=== PATIENT | female | born 1995 | race Caucasian/White ===

== ENCOUNTER 2024-10-19 09:02 | Emergency (ER) | payer BC, SELFPAY ==
[2024-10-19 09:08] VITALS: BP 97/62; PULSE 52; RESP 16; TEMP 36.6; O2SAT 99; BMI 23.1
[2024-10-19 09:22] VITALS: BP 101/65; PULSE 43; O2SAT 100
--- NOTE | 2024-10-19 09:34 | ED_ITS ---
HPI - Syncope General Time Seen by Provider: 09:35 Date Seen: 10/19/24 Chief Complaint: Syncope/Fainted Stated Complaint: fainted Time Seen by Provider: 10/19/24 09:34 Source: patient and RN notes reviewed Mode of arrival: ambulatory Limitations: no limitations History of Present Illness HPI narrative: This 29-year-old female is brought in by EMS after syncopal episode. Her was present. They are doing IU I with self [facility]. She administered injectable Ovidrel in her abdomen and immediately fainted. Her was there, lowered her to the floor. He states there was no injury, did not hit her head, did not fall. She had maybe 20 seconds where she was out, when she came to she remembers being confused and disoriented. The only other time she had this injection they did it. She did faint in 7th grade after knee surgery, got up too quickly the next morning after surgery and fainted. Her heart rate is bradycardic on arrival, states she has always been low, heart rate will go into the 40s at night on her orua ring. She does exercise but is not at a significant runner. She wants no for heart rate being this low the problem. Discussed with her it can be a sign of healthy heart but if she becomes symptomatic in the future or is having more issues, it potentially is a problem. I would say that is not necessarily in easy question to answer and will depend on response and symptoms into the future. Her did note some slight jerking but there was no noted tonic clonic activity per report. EMS did put an IV in and started normal saline, 250 mL. She has not ate or drink this morning yet. Related Data Home Medications ?Medication ?Instructions ?Recorded ?Confirmed choriogonadotropin aida,humrec 250 mcg subcut 10/19/24 mcg/0.5 mL subcutaneous syringe (Ovidrel) levothyroxine 25 mcg tablet 25 mcg PO DAILY 10/19/24 0 10/19/24 (Levo-T) sertraline 25 mg tablet 25 mg PO DAILY 10/19/2409/29 Allergies Allergy/AdvReac Type Severity Reaction Status Date / Time No Known Drug Allergies Allergy Verified 10/19/24 09:08 Review of Systems Status of ROS: Reports: 6 or more systems reviewed and unremarkable except as noted in History and below Exam Const: Vital Signs, click to edit/add: Vital Signs - 24 hr 10/19/24 09:08 10/19/24 09:22 10/19/24 09:41 Temperature 97.8 F Pulse Rate 43 L Pulse Rate [Pulse Oximeter] 52 L Respiratory Rate 16 Blood Pressure 101/65 Blood Pressure [Ri ght Upper Arm] 97/62 Pulse Oximetry 99 100 100 Oxygen Delivery Me thod Room Air 10/19/24 09:42 Temperature Pulse Rate 41 L Pulse Rate [Pulse Oximeter] Respiratory Rate Blood Pressure 102/62 Blood Pressure [Ri ght Upper Arm] Pulse Oximetry 100 Oxygen Delivery Me thod This 29-year-old female is alert, interactive, no apparent distress. Sclera clear, conjugate gaze, symmetrical facial function, speaking in complete sentences. Neck is supple, no adenopathy or thyromegaly masses or nodules. Lungs are clear come good air entry, wheeze or crackles, no accessory muscle use. CV is slow but regular, no murmur, normal S1-S2, no S3-S4. Abdomen is soft, nontender, nondistended, no organomegaly, no rebound or guarding. She has a bandage over the site of injection, no surrounding erythema or bruising. Moving extremities and legs, no gross neuro deficits noted. Documenting provider has reviewed patient's vital signs: yes Course Course ED Course: Patient will be monitored, will get baseline labs but this really is consistent with vasovagal syncope. She gave herself an injection and fainted immediately. We call that vasovagal syncope and have reviewed this. She will be on monitoring while here to ensure no arrhythmia. Her bradycardia is baseline and doubt that this is causing active symptoms but could have tied in with the vasovagal syncope. This is not likely to be cerebrovascular ischemic disease at all, will not be doing a head CT is the radiation outweighs any benefit. Doubtful that this is thromboembolic disease with pulmonary emboli but will do a screening D-dimer and observe her for hypoxia here. Unlikely to be ischemic car diac disease as well but again will be getting troponin and monitoring here. Reevaluation(s) Time of Reevaluation #1: 10:56 Reevaluation #1: Have reviewed with patient that her labs are all reassuring. D-dimer was negative and with her history, really highly doubt pulmonary embolus as a cause. Lactate was normal which really does reassure us that there was no seizure activity. She is feeling fine. Will discharge to home. No hypoxia or arrhythmia seen while here. Vital Signs Vital signs: Initial Vital Signs Temperature 97.8 F 10/19/24 09:08 Temperature Source Temporal Artery Scan 10/19/24 09:08 Pulse Rate 52 L 10/19/24 09:08 Respiratory Rate 16 10/19/24 09:08 Blood Pressure 97/62 10/19/24 09:08 Blood Pressure Mean 73 10/19/24 09:08 Blood Pressure Position Supine 10/19/24 09:08 Pulse Oximetry 99 10/19/24 09:08 Oxygen Delivery Method Room Air 10/19/24 09:08 Vital Signs Temperature 97.8 F 10/19/24 09:08 Pulse Rate 52 L 10/19/24 09:08 Respiratory Rate 16 10/19/24 09:08 Blood Pressure 97/62 10/19/24 09:08 Pulse Oximetry 99 10/19/24 09:08 Oxygen Delivery Method Room Air 10/19/24 09:08 Temperature 97.8 F 10/19/24 09:08 Pulse Rate 41 L 10/19/24 09:42 Respiratory Rate 16 10/19/24 09:08 Blood Pressure 102/62 10/19/24 09:42 Pulse Oximetry 100 10/19/24 09:42 Oxygen Delivery Method Room Air 10/19/24 09:08 MDM - Syncope Lab Data Attestation: I reviewed the patient's lab results. Labs: Lab Results 10/19/24 Range/Units 09:51 WBC 5.66 (4.50-11.00) K/uL RBC 4.45 (4.00-5.20) m/uL Hgb 13.5 (12.0-16.0) gm/dL Hct 40.6 (33.0-51.0) % MCV 91 (80-100) fL MCH 30 (26-34) pg MCHC 33 (32-36) gm/dL RDW Coeff of Yasmeen 12.3 (11.5-15.5) % Plt Count 214 (140-440) K/uL Neut % (Auto) 72.0 (42.0-72.0) % Lymph % (Auto) 18.0 L (20-44) % Taney % (Auto) 8.0 (0.0-11.0) % Eos % (Auto) 1.1 (0.0-7.0) % Baso % (Auto) 0.7 (0.0-3.0) % Neut # (Auto) 4.08 (1.7-7.0) K/uL Lymph # (Auto) 1.00 (0.90-2.90) K/uL Taney # (Auto) 0.50 (0.00-0.90) K/UL Eos # (Auto) 0.06 (0.00-0.50) K/uL Baso # (Auto) 0.04 (0.00-0.30) K/uL Abs Immat Gran (auto) 0.01 (0.00-0.30) K/uL Imm/Tot Granulo (auto) 0.2 % D-Dimer Quant (PE/DVT) < 0.27 (0.00-0.50) ug/ml Sodium 137 (135-149) mmol/L Potassium 4.5 (3.6-5.1) mmol/L Chloride 107 (96-114) mmol/L Carbon Dioxide 27 (20-32) mmol/L Anion Gap 3 L (7-15) mEq/L BUN 14 (5-24) mg/dL Creatinine 0.9 (0.5-1.5) mg/dL Estimated Creat Clear 107.81 Estimated GFR 88 ml/min Glucose 90 (60-115) mg/dL Lactate 0.7 (0.5-1.9) mmol/L Calcium 9.0 (8.4-10.6) mg/dL Troponin I < 0.01 (0.01-0.04) ng/mL ECG Data Attestation: I personally reviewed and interpreted this ECG as follows: (Sinus bradycardia, 43 beats per minute. No active infarct or ischemia.) ECG interpretation date: 10/19/24 ECG interpretation time: 09:21 Discharge Plan Discharge Clinical Impression: Vasovagal syncope Patient Disposition: Home, Self-Care Condition: Stable Instructions: Syncope (ED) Additional Instructions: I would absolutely recommend laying down with any further injections, would do injections with your present. I also would recommend eating and drinking adequately before injections or medical procedures. At this time I do not feel that your heart rate is the cause of your problems. If you note in the future that you are having more vasovagal episodes or becoming dizzy or lightheaded with position changes, have exercise intolerance, further evaluation of your heart rate can be entertained with Cardiology. Activity Level: No Restrictions and Activity as Tolerated Discharge Diet: Regular Prescriptions: No Action levothyroxine [Levo-T] 25 mcg tablet 25 mcg PO DAILY sertraline 25 mg tablet 25 mg PO DAILY Ovidrel 250 mcg/0.5 mL syringe subcut Follow Up/Referrals: Provider,Not a Local [Primary Care Provider, Family Practice] Stand Alone Forms: [employer] Info Instructions
[2024-10-19 09:41] VITALS: O2SAT 100
[2024-10-19 09:42] VITALS: BP 102/62; PULSE 41; O2SAT 100
[2024-10-19 10:02] VITALS: BP 99/61; PULSE 47; RESP 15; O2SAT 100
[2024-10-19 10:04] LABS: Lactate* 0.7 mmol/L (0.5-1.9)
[2024-10-19 10:06] LABS: Hematocrit 40.6 % (33.0-51.0); Hemoglobin* 13.5 gm/dL (12.0-16.0); Immature Granulocytes Abs Auto 0.01 K/uL (0.00-0.30); Immature Granulocytes Pct Auto 0.2 %; Mean Corpuscular HGB Conc 33 gm/dL (32-36); Mean Corpuscular Hemoglobin 30 pg (26-34); Mean Corpuscular Volume 91 fL (80-100); RDW Coefficient of Variation % 12.3 % (11.5-15.5); Red Blood Count 4.45 m/uL (4.00-5.20); White Blood Count* 5.66 K/uL (4.50-11.00)
--- OUTSIDE RECORDS SUMMARY | 2024-10-19 10:07 | XMS_ITS | Data Portability ---
Author Organization [facility], [id number] Address [address] [address] [place] [address] Assessment Encounter Date Assessment Date Assessment LastModified by Organization Details LastModified Time 10/11/2024 10/11/2024 I spent a total of 10 minutes providing care for this patient including: preparing to see the patient, obtaining a medical history, completing a medically appropriate physical exam, completing documentation of visit information and plans in the EMR, counseling the patient and/or caregiver regarding her diagnosis, treatment options and follow up plans, as well as any necessary communication of subsequent test results to the patient Excludes time spent on separately identifiable services. This service was provided using telemedicine including synchronous audio and/or video approved technology. The patient verbally Consents to telemedicine services, virtual check-ins and evisits. Telemedicine consultation via Synchronous Audio and Video Call. The patient is located in their home-10 when receiving health services through telecommunication technology. Not available 10/11/2024 10:50:40 10/18/2024 10/18/2024 I spent a total of 10 minutes providing care for this patient including: preparing to see the patient, obtaining a medical history, completing a medically appropriate physical exam, completing documentation of visit information and plans in the EMR, counseling the patient and/or caregiver regarding her diagnosis, treatment options and follow up plans, as well as any necessary communication of subsequent test results to the patient Excludes time spent on separately identifiable services. This service was provided using telemedicine including synchronous audio and/or video approved technology. The patient verbally Consents to telemedicine services, virtual check-ins and evisits. Telemedicine consultation via Synchronous Audio and Video Call. The patient is located in their home-10 when receiving health services through telecommunication technology. [email or web address] Not available 10/17/2024 08:27:52 Plan of Treatment Reminders Order Date Submit Date Provider Last Modified By Organization Details Last Modified Time Details Appointments G_ARTIFIC IAL INSEMINAT ION 2024 10:30A M Dr. Reina Almodovar Not available Not available Not available Lab None recorded. Referral None recorded. Procedures None recorded. Surgeries None recorded. Imaging US, transvagi nal 2024 025 anuj [id number] le_gonzález, [address], [address], [place], [address], 10/11/2024 13:23:47 Medication Orders Ovidrel 250 mcg/0.5 mL subcutane ous syringe 2024 025 [id number], [address] [facility] [address], [place], [place], [id number], 10/11/2024 09:47:16 letrozole 2.5 mg tablet 2024 025 [employer] [facility] [address] [facility] [employer], [address] [facility], [place], [address], 10/11/2024 09:47:12 Patient TargetsNo targets recorded. Patient Instructions Encounter Date Encounter Id Patient Instructions Last Modified By Organization Details Last Modified Time 09/24/2024 [id number] -can also cover w/IC tomorrow -UPT in 2 wks if no menses -call with CD 1 if wants to start another medicated/monitor ed cycle Not available 09/24/2024 13:24:48 10/11/2024 [id number] -reviewed baseline sono w/Huepfel and pt -plan letrozole 2.5 mg CD 5-9 -follow up u/s CD 12 or 13 -IUI timing based on repeat sono [email or web address] Not available 10/11/2024 12:11:19 10/18/2024 [id number] -reviewed ultrasound findings, 22.4 mm follicle, 7 mm endometrium -plan IUI Friday or , Ovidrel trigger 10/18 or 10/19 -has appt with [facility] in October [email or web address] Not available 10/18/2024 11:35:56 Reason for Referral None Reported. Results Created Date Observation Date Name Description Value Unit Range Abnormal Flag Note LastModifiedBy Organization Detail LastModifiedTime 09/07/19 25 09/06/2024 PROGE STERO NE progesterone 20.8 NG/mL Healt hy Postm enopa usal Women : Postm enopa use: <=0.1 ng/mL Healt hy Pregn ant Women : 1st Trime ster: 11.0- 44.3 ng/mL 2nd Trime ster: 25.4- 83.4 ng/mL 3rd Trime ster: 58.7- 214.0 ng/mL Healt hy Women Cycle Phase : Folli cular : <0.1- 0.2 ng/mL Ovula tion: 0.1-4 .1 ng/mL Lutea l: 4.1-1 4.5 ng/mL Healt hy Women Cycle Sub Phase : Early Folli cular : <0.1- 0.3 ng/mL Inter media te Folli cular : <0.1- 0.2 ng/mL Late Folli cular : <0.1- 0.2 ng/mL Ovula tion: <0.1- 2.4 ng/mL Early Lutea l: 2.4-1 5.1 ng/mL Inter media te Lutea l: 4.8-2 0.9 ng/mL Late Lutea l: 0.5-1 3.5 ng/mL Not Available [address], [place], [address], 09/06/2024 21:06:28 09/17/19 25 09/16/2024 US, trans vagin al No observ ation record ed. [email or web address] [address], [place], [address], 09/21/2024 08:44:22 09/24/19 25 09/23/2024 US, trans vagin al No observ ation record ed. [email or web address] [address], [place], [address], 10/05/2024 08:55:23 10/12/1910/11/2024 US, trans vagin al No observ ation record ed. [email or web address] Velasquez [address], [place], [address], 10/17/2024 13:16:56 10/19/19 25 10/18/2024 US, trans vagin al No observ ation record ed. korey Velasquez [address], [place], [address], 10/18/2024 10:19:30 Result Notes None recorded. Problems Name Problem SNOMED Code Status Onset Date Resolution Date Notes Provider Name and Address Organization Details Recorded Time 97635181 Completed 202312/03/2023 Andra garcia null, [place] - [facility] 4 11:29:27 Blood group O Rh(D) negative 962749824 Completed 2023 Evleyn Meza null, [place] - [facility] 4 11:28:56 Blood group O Rh(D) negative 820263353 Active 2023 Evelyn Meza null, [place] - [facility] 4 11:28:56 Problem Notes None recorded. Procedures Surgical History Date Name Laterality Status Provider Name and Address Organization Details Recorded Time 09/25/19 25 Intrauterine Insemination ([facility]) completed BETSY HARDEN [address] [facility],[address], [place], [address], [facility] - [facility] 09/24/2024 13:23:18 09/01/19 25 Intrauterine Insemination ([facility]) [place] [address] [address], [place], [address], [facility] - [facility] 08/31/2024 13:59:14 02/17/20 24 Date of Last Pap Smear completed Gabe Tilley [place] - [facility] 02/23/2024 14:37:49 12/11/19 24 HYSTEROSCOPIC TISSUE REMOVAL ([facility]) completed [facility] [place] [facility] 12/16/2023 13:57:19 09/26/19 23 Hysteroscopy [place] [address] [facility],[address], [place], [address], [facility] 11/23/2023 17:45:37 operative procedure on knee completed Jennifer Felton [place] - [facility] 09/16/2024 08:17:57 Imaging Results None recorded. Procedure Notes None recorded. Medical Equipment None Reported. Allergies No known drug allergies Medications Name Sig Start Date Stop Date Status Note LastModified by Organization Details LastModified Time prednisone 10 mg tablet TAKE 2 TABLETS BY MOUTH THREE TIMES DAILY FOR 3 DAYS, 2 TABLETS TWICE DAILY FOR 3 DAYS, 1 TABLET TWICE DAILY FOR 3 DAYS, 1 TABLET DAILY FOR 3 DAYS FOR pain flare 10/29 completed Not Available Not Available Not Available levothyroxi ne 25 mcg tablet TAKE 1 TABLET BY MOUTH EVERY DAY active Not Available Not Available No t Available ketorolac 10 mg tablet Take 1 tablet orally 4 times a day as needed for pain, not to exceed 40 mg/day and 5 days duration for all dose forms 10/29 completed Not Available Not Available Not Available cyclopentol ate 1 % eye drops PLACE 1 DROP IN THE RIGHT EYE 3 TIMES A DAY 05/07 completed Not Available Not Available Not Available prednisolon e acetate 1 % eye drops,suspe nsion INSTILL 1 DROP IN THE RIGHT EYE 4 TIMES DAILY 05/07 completed Not Available Not Available Not Available methocarbam ol 750 mg tablet 11/20 completed Not Available Not Available Not Available mifepriston e 200 mg tablet Take 1 tablet by oral route for 1 day. 11/13 completed Not Available Not Available Not Available misoprostol [address] 4 TABLETS VAGINALLY DIRECTED 11/13 completed Not Available Not Available Not Available gabapentin 300 mg capsule 11/20 completed Not Available Not Available Not Available sertraline 25 mg tablet TAKE 1 TABLET BY MOUTH EVERY DAY active Not Available Not Available No t Available diclofenac sodium 75 mg tablet,penny yed release 11/20 completed Not Available Not Available Not Available letrozole 2.5 mg tablet Take 1 tablet every day by oral route for 5 days. 2024 active Not Available Not Available Not Avai lable methylpredn isolone 4 mg tablets in a dose pack Take according to package direction s for 6 days 10/29 completed Not Available Not Available Not Available atropine 1 % eye drops Instill ONE drop into right IN THE AFFECTED EYE EVERY DAY FOR SEVEN DAYS 10/29 completed Not Available Not Available Not Available ondansetron 4 mg disintegrat ing tablet PLACE 1 TABLET EVERY 4-6 HOURS BY TRANSLING UAL ROUTE NEEDED FOR 1 DAY. 11/13 completed Not Available Not Available Not Available doxycycline hyclate 100 mg tablet TAKE 1 TABLET BY MOUTH TWICE DAILY STARTING NIGHT OF PROCEDURE 02/16 completed Not Available Not Available Not Available Ovidrel 250 mcg/0.5 mL subcutaneou s syringe ADMINISTE R 0.5 ML UNDER THE SKIN EVERY DAY FOR 1 DAY. active Not Available Not Available No t Available Dasetta (28) 1 mg-35 mcg tablet Take 1 tablet by mouth daily. Skip placebo tablets. 10/29 completed Not Available Not Available Not Available Vitals Date Recorded Body height Body mass index (BMI) Body weight Systolic And Diastolic Provider Name and Address Organization Details Last Updated DateTime 09/24/2024 185.42 cm 23.2 kg/m2 36306.82 g 100/62 mm[Hg] Jayla Riser [facility] 09/24/2024 12:23:07 Social History Question Answer Notes LastModified by Organizat ion Details LastModified Time Tobacco Smoking Status Never Smoker [facility] 09/16/2024 08:16:44 What Is Your Level Of Caffeine Consumption? None Information not available 09/16/2024 Spouses/Partners Name: Ti benavides Information not available 09/16/2024 Have You Ever Been Or Currently Are A Victim Of Sexual Abuse? No Information not available 09/16/2024 Have You Ever Been Or Currently Are A Victim Of Physical Abuse? No Information not available 09/16/2024 Have You Ever Been Or Currently Are A Victim Of Emotional Abuse? No Information not available 09/16/2024 What Is Your Relationship Status? Information not available 09/16/2024 Sex: Female Functional Status Question Answer Note LastModified by Organization D etails LastModified Time What is your level of alcohol consumption? None Information not available 09/16/2024 What is your exercise level? Moderate Information not available 09/16/2024 Mental Status None recorded. Family History Nothing Reported. Medical History Condition Response Neurology- Headaches/Migraines Y Gynecological History Statement/Question Response History of Abnormal PAP N Date of Last HPV Test 02/17/2024 Date of Last Pap Smear 02/17/2024 Date of LMP 09/12/2024 Obstetrics History GPAL:G 1 P 0 0 1 0 Type Value Spontaneous 1 Total 1 Past Encounters Encounter ID Performer Location Encounter Start Date Encounter Closed Date Diagnosis/Indication Diagnosis SNOMED-CT Code Diagnosis ICD10 Code Diagnosis Note [id number] ALISIA DELGADO MD [id number] [facility] [address] [address] 10/31/2023 15:19:21 11/05/2023 10:05:52 Vaginal bleeding complicating early 938203634 O20.9 [id number] [facility] [id number] [facility] ,[address] [place] [address] 10/31/2023 16:29:21 10/31/2023 17:50:22 Missed miscarriage 54324186 O02.1 RhD negative 270119671 Z -Rhogam not administer ed due to early gestation per protocol 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, had a large uterine septum-had take down summer 2022 at [place], records requested [id number] ALISIA DELGADO MD [id number] [facility] [address] [place] [address] 11/14/2023 10:15:15 11/24/2023 15:34:36 Missed miscarriage 82778402 O02.1 [id number] TI GOMEZ MD [id number] [facility] [address] [place] [address] 11/14/2023 11:02:31 11/17/2023 09:05:43 Incomplete miscarriage 414370034 O03.4 [id number] TI GOMEZ MD [id number] [facility] [address] [place] [address] 11/21/2023 16:35:25 11/24/2023 10:25:28 Complete miscarriage 378430764 O03.9 [id number] KARLO RODRIGUEZ, [id number] [place] [address] [place] [address] 11/28/2023 16:15:39 12/16/2023 17:01:18 Missed miscarriage 45114944 O02.1 [id number] TI GOMEZ MD [id number] [place] [address], [address] [place] [address] 11/28/2023 16:40:16 12/03/2023 11:25:35 Incomplete miscarriage 328196135 O03.4 Pre-surger y evaluation 820040293 Z01.009 [id number] ALISIA DELGADO MD [id number] [place] ,[address] [place] [address] 12/10/2023 08:14:02 12/10/2023 09:08:54 Retained products after miscarriage 832049829 O03.4 [id number] [facility] [id number] [place] ,[address] [place] [address] 02/17/2024 09:16:48 02/17/2024 10:17:19 Gynecologic examination 23333215 Z01.419 Mental [facility] screening 902054332 Z13.39 The PHQ & ELDA were reviewed with the patient. They have no clinically significan t mood concerns. Screening for malignant neoplasm of cervix 318508710 Z12.4 [id number] CR LANG, [facility] [id number] [place] ,[address] [place] [address] 05/07/2024 16:08:49 05/10/2024 09:56:06 Uveitis 611953038 H20.146 [id number] CR LANG [facility] [id number] [place] ,[address] [place] [address] 08/13/2024 15:47:12 08/16/2024 10:27:24 Trying to conceive 830580955 Z78.9 -reviewed pertinent medical & CFO CONTROLLER history as well as spouse's medical history-me nstrual history as well as her monitoring would appear she is ovulating regularly- continue current supplement s with the exception of melatonin, this can interact with thyroid meds-she has already had an HSG, report indicates possible left tubal blockage, her recall of the testing was that it was fine-req uest copy of spouse's SA-at this point, they are most interested in pursuing IUI in addition to completing lab evaluation s that have not yet been done-discu ssed options for IUI includine monitored/ unmonitore d and medicated/ unmedicate d: 1. natural cycle, call with +OPK to schedule IUI the next day, 2. u/s monitoring to confirm follicle maturation followed by IUI based on OPK or 3. use Ovidrel to trigger ovulation andplan IUI timing-ricco efly discussed limitation s of this clinic including no on-site andrology lab and no weekend/ev ening hours, this can at times complicate IUI-briefl y discussed option to add ovarian stimulatio n with either clomiphene or letrozole, no option for unmonitore d cycle if choosing to add these medication s, two ultrasound s minimum (baseline + mid cycle) done per cycle-will d/w all with spouse, will have infertilit y benefits checked and decide how to proceed Subclinica l hypothyroidism 25853462 E03.8 Screening for disorder 252047769 Z13.29 Z13.0 Z13.21 Z13.228 Diabetes m ellitus screening 692409642 Z13.1 [id number] CR RICKEY, DAVEY- [id number] [place] [address] [facility] ,[address] [place] [place] [address] 08/20/2024 16:56:38 08/25/2024 11:24:19 Vaginal pain 19174255 R10.2 [id number] SVEN EDMONDSON MD [id number] [place] ,[address] [place] [address] 08/31/2024 11:40:34 08/31/2024 14:04:02 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 516474592 Z31.81 N97.8 +LH surge on CD#15.Toda y is CD#16 and IUI performedP elijah to return next Friday for progestero ne level [id number] ALISIA DELGADO MD [id number] [place] ,[address] [place] [address] 09/16/2024 08:24:23 09/16/2024 11:59:19 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 573320320 Z31.81 N97.8 [id number] MD DANIKA QUARLES004_SOU [place] ,[address] [place] [address] 09/16/2024 10:51:54 09/16/2024 11:58:46 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 654643012 Z31.81 N97.8 Normal baseline USPlan letrozole 2.5mg CD#5-9Retu rn CD#12 for US (09/23), with possible IUI either 09/24 or Mon tart OPK's CD#10 [id number] GRACIE ALVARADO, DAVEY [id number]_LBC [place] ,[address] [place] [address] 09/23/2024 08:20:28 09/23/2024 11:18:47 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 222534137 Z31.81 N97.8 [id number] BETSY HARDEN [id number] [place] [address] [place] [address],[address] [place] [address] 10/11/2024 08:53:54 10/11/2024 12:46:44 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 533715760 Z31.81 N97.8 Female infertility 15546 08 N97.9 Cyst of right ovary 1223 317100 2493899 N83.201 -3.5 cm, unchanged from last cycle-elisha tor for any right sided pain [id number] KARLO RODRIGUEZ, DO [id number] [place] ,[address] [address] 10/11/2024 08:26:05 10/11/2024 08:53:23 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 900108570 Z31.81 N97.8 [id number] BETSY HARDEN [id number] [place] [address] [place] [address] 10/18/2024 11:08:39 10/18/2024 15:42:32 Female infertility 5016022 N97.9 Cyst of right ovary 1223 555811 7623760 N83.201 -stable, asymptomat ic, monitor for any right sided pain [id number] KARLO RODRIGUEZ, [id number]_XQY [address] [address] 10/18/2024 08:28:09 10/18/2024 08:56:29 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 104240005 Z31.81 N97.8 Health Concerns Section Related Observation LastModified by Organization Detai ls LastModified Time None Recorded Concern Status LastModified by Organization Details LastModified Time None Recorded Advance Directives Directive None Recorded Payers Insurance Date Sequence Insurance Name Policy Number Policy Reis Covered Member ID Reis Member ID Guarantor Name 10/17/2024 1 [place] [id number] Naga Murrieta [id number] Naga Murrieta 08/16/2024 1 [place] [id number] Ngaa [id number] Naga Murrieta Notes Date Note Type Note Provider Name and Address Organization Details Recorded Time 09/24/2024 text/html Naga is here today for an IUI. BETSY HARDEN [address] [facility],[address], [place], [address], [facility] 09/24/2024 13:25:20 10/11/2024 text/html Cycle #: 3Cycle Day: 5Cycle Medications: letrozole 2.5mgMedication taken on: Plan CD# 5-9Ultrasound findings:Endometri um: trilaminar 5.8 and 6.3mmLeft Ovarian Follicles: n/aRight Ovarian Follicles: n/a, simple cystFluid in Cul-de-sac: noTrigger Shot: yesInsemination: yes - planned Semen Analysis: Abnormal motility and morphology Tubal Patency Study: Not done Lab Results: Not done. Day 21 progesterone = 20.8TSH 2.08 (on Synthroid 25mcg) Results of Previous Cycle:Cycle 1: unmedicated, did IUI after spontaneous ovulation. Had +LH surge on CD#15 last cycle Cycle 2: letrozole 2.5mg, good response cycle day 12, planning trigger shot CD 12 and IUI the next day. Cycle 3: baseline sono with simple cyst, d/w Huepfel, present last cycle, no growth with 2.5 mg letrozole, plan same dose, trigger shot + IUI CR LANG, [facility]- [id number] [facility],[address], [place], [address], [facility] 10/11/2024 12:15:06 10/18/2024 text/html Cycle #: 3Cycle Day:Cycle Medications: letrozole 2.5mgMedication taken on: Plan CD# 5-9Ultrasound findings:Endometri um: trilaminar 7 mmLeft Ovarian Follicles: 22.4Right Ovarian Follicles: n/a, simple cystFluid in Cul-de-sac: noTrigger Shot: yesInsemination: yes - plannedSemen Analysis: Abnormal motility and morphology Tubal Patency Study: Not done Lab Results: Not done. Day 21 progesterone = 20.8TSH 2.08 (on Synthroid 25mcg) Results of Previous Cycle:Cycle 1: unmedicated, did IUI after spontaneous ovulation. Had +LH surge on CD#15 last cycle Cycle 2: letrozole 2.5mg, good response cycle day 12, planning trigger shot CD 12 and IUI the next day. Cycle 3: baseline sono with simple cyst, d/w Huepfel, present last cycle, no growth with 2.5 mg letrozole, plan same dose, trigger shot + IUI Not Available Not Available Not Available OBGyn Episode Ob Episode Information Episode Created Date Number of Fetuses Patient Bloodtype Patient rh Status Prepregnancy Weight lbs Domestic Partner Domestic Partner Phone Father Name Learning And Development Consultant Status 10/31/19 24 1 O Negative CLOSED Fetus Data First Name Last Name Admitted to NICU Weight (g) Sex Living Outcome Pediatric Complications Fetus ID Race Codes Race Delivery Type [id number] Problems Problem Notes Problem Name Start Date End Date Resolution Snomed Code Not e Blood group O Rh(D) negative 10/31/2023 [id number] Todd Calculation Initial Todd Date Initial Exam Date Initial Exam Provider Initial Ultrasound Date Last Menstrual Period Date Ultra Sound Weeks Gestation 10/31/2023 0 Eighteen To Twenty Week Todd Update Ultra Sound Date Fundal Height At Umbil Quickening Date Ultra Sound Latest Weeks Gestation Final Todd Confirmed By Final Todd Confirmed Date Final Todd Date Ultra Sound Latest Days Gestation 0 0 Pre-rosales Flowsheet Flowsheet Date 10/31/2023 Goldsmith Score Blood Edema Fundus Height Fundus Units Glucose Ketones Leukocytes Nitrite Labor Signs Protein Cervic Dilation Cervic Effacement Cervic Station Type Weight in lbs Pre/Post Dialysis Refused BP Diastolic BP Location Tested BP Systolic BP Type Fetus Heart Rate Present Fetus Movement Comments Flowsheet Date 10/31/2023 Goldsmith Score Blood Edema Fundus Height Fundus Units Glucose Ketones Leukocytes Nitrite Labor Signs Protein Cervic Dilation Cervic Effacement Cervic Station none neg Type Weight in lbs Pre/Post Dialysis Refused 174.547709414322 BP Diastolic BP Location Tested BP Systolic BP Type 70 95 Fetus Heart Rate Present Fetus Movement Comments Flowsheet Date 11/14/2023 Goldsmith Score Blood Edema Fundus Height Fundus Units Glucose Ketones Leukocytes Nitrite Labor Signs Protein Cervic Dilation Cervic Effacement Cervic Station Type Weight in lbs Pre/Post Dialysis Refused BP Diastolic BP Location Tested BP Systolic BP Type Fetus Heart Rate Present Fetus Movement Comments Flowsheet Date 11/14/2023 Goldsmith Score Blood Edema Fundus Height Fundus Units Glucose Ketones Leukocytes Nitrite Labor Signs Protein Cervic Dilation Cervic Effacement Cervic Station Type Weight in lbs Pre/Post Dialysis Refused Weight 176.629725529907 BP Diastolic BP Location Tested BP Systolic BP Type 62 120 Fetus Heart Rate Present Fetus Movement Comments Flowsheet Date 11/21/2023 Goldsmith Score Blood Edema Fundus Height Fundus Units Glucose Ketones Leukocytes Nitrite Labor Signs Protein Cervic Dilation Cervic Effacement Cervic Station Type Weight in lbs Pre/Post Dialysis Refused With clothes 180.952328802654 BP Diastolic BP Location Tested BP Systolic BP Type 65 110 sitting Fetus Heart Rate Present Fetus Movement Comments Flowsheet Date 11/28/2023 Goldsmith Score Blood Edema Fundus Height Fundus Units Glucose Ketones Leukocytes Nitrite Labor Signs Protein Cervic Dilation Cervic Effacement Cervic Station Type Weight in lbs Pre/Post Dialysis Refused BP Diastolic BP Location Tested BP Systolic BP Type Fetus Heart Rate Present Fetus Movement Comments Flowsheet Date 11/28/2023 Goldsmith Score Blood Edema Fundus Height Fundus Units Glucose Ketones Leukocytes Nitrite Labor Signs Protein Cervic Dilation Cervic Effacement Cervic Station Type Weight in lbs Pre/Post Dialysis Refused Weight 176.751221256800 BP Diastolic BP Location Tested BP Systolic BP Type 65 118 Fetus Heart Rate Present Fetus Movement Comments Menstrual History Last Menstrual Date Menses Monthly On Bcp Conception Prior Menses Frequency Hcg Plus Date Menarche Onset Age Delivery Information Delivery Date Delivery Type Labor Anesthesia Weeks Gestation Incision Type Labor Labor Length Hrs Delivered By Post Complications Tubal Sterilization Discharge Date Comments Discharge Information Feeding Method Contraceptive Method Maternal HG B and HCT Levels
--- OUTSIDE RECORDS SUMMARY | 2024-10-19 10:07 | XMS_ITS | Clinical Summary ---
Author Organization [facility] Address [address] [place] [id number] Care Team Providers Care Agent Broker Name Role Phone No Ref-Primary, Physician Primary Care Provider Mary Farah PA-C Unavailable [phone] Allergies No known active allergies Medications norgestim-eth estrad triphasic (ORTHO TRI-CYCLEN) 0.18/0.215/0.25 MG-35 MCG tabletIndications: Encounter for surveillance of contraceptive pills Take 1 tablet by mouth daily 84 tablet 2 0 Active venlafaxine (EFFEXOR-XR) 75 MG 24 hr capsuleIndications :Mild episode of recurrent major depressive disorder Take 1 capsule (75 mg) by mouth daily 4 capsule 1 Active sertraline (ZOLOFT) 25 MG tablet Take 25 mg by mouth daily Active Active Problems Problem Noted Date Diagnosed Date ACP (advance care planning) 11/06/2017 Mild episode of recurrent major depressive disor emanuel 11/06/2017 Wheezing - just during basketball only 1 Resolved Problems Problem Noted Date Diagnosed Date Resolved Date Adjustment disorder with mix ed anxiety and depressed mood 10/16/2012 11/06/2017 Health Nursing Home 09/12/2012 09/15/2023 Overview (12/25/2012): State Tier Level: Tier 1 Status: NA Supervisor Title: See Letters for [facility] Care Plan NO ACTIVE PROBLEMS 06/08/2009 3 Immunizations Immunization Administration Dates Next Due HPV9 (Gardasil) 04/01/2019,12/31/2017,04/21/2017 Influenza (IIV3) PF 03/07/2003 Influenza Vaccine >6 months,quad, PF 12/31/2017 MMR (MMRII) 11/18/2003 TD,PF 7+ (Tenivac) 11/18/2003 TDAP Vaccine (Boostrix) 09/12/2012 Varicella (Varivax) 12/14/2007,11/18/2003 Family History Medical History Relation Comments Breast Cancer No family hx of C.A.D. No family hx of Cancer - colorectal No family hx of Diabetes No family hx of Relation Status Comments Brother Alive Father Alive Maternal Grandfather Maternal Grandmother Alive Mother Alive Paternal Grandfather Alive Paternal Grandmother Social History Tobacco Use Types Packs/Day Years Used Date Smoking Tobacco: Never Smokeless Tobacco: Never Alcohol Use Standard Drinks/Week Comments Yes 0 (1 standard drink = 0.6 oz pur e alcohol) 0-1 drinks per week AUDIT-C Answer Date Recorded Q1: How often do you have a drink containing alc ohol? 2-4 times a month 04/01/2019 Q2: How many drinks containi ng alcohol do you have on a typical day when you are drinking? 1 or 2 04/01/2019 Q3: How often do you have si x or more drinks on one occasion? Never 04/01/2019 PHQ-2 Answer Date Recorded PHQ-2 Score 0 04/01/2019 Adolescent Education Answer Date Record ed Getting School Help Needed Not on file 10/30 Comments Unknown Sex and Gender Information Value Date Recorded Sex Assigned at Female 03/22/2019 1:30 PM PROFESSIONAL NURSING TUTOR Legal Sex Female 3:35 AM PROFESSIONAL NURSING TUTOR Gender Identity Female 03/22/2019 1:30 PM PROFESSIONAL NURSING TUTOR Sexual Orientation Straight 03/22/2019 1: 30 PM PROFESSIONAL NURSING TUTOR Occupation Industry Job Start Date Job End Date Teacher Not on file Not on file Not on file Last Filed Vital Signs Vital Sign Reading Time Taken Comments Blood Pressure 111/64 10/31/2023 1:30 AM CDT Pulse 62 10/31/2023 1:30 AM CDT Temperature 36.9 C (98.4 F) 10/30/2023 8:03 PM CDT Respiratory Rate 16 10/31/2023 1:30 AM CDT Oxygen Saturation 98% 10/31/2023 1:30 AM CDT Inhaled Oxygen Concentration - - Weight 80.5 kg (177 lb 7.5 oz) 10/30/2023 8:03 P M CDT Height 185.4 cm (6' 1) 10/30/2023 8:03 PM CDT Body Mass Index 23.41 10/30/2023 8:03 PM CDT Plan of Treatment Health Maintenance Due Date Last Done Comments ADVANCE CARE PLANNING 1993 ANNUAL REVIEW OF HM ORDERS 1993 DEPRESSION ACTION PLAN 1993 HIV SCREENING 2008 HEPATITIS C SCREENING 2011 HEPATITIS B VACCINE (1 of 3 - 19+ 3-dose series) 2012 PHQ-9 04/01/2020 04/01/2019, 1005/2017, 11/06/2017 YEARLY PREVENTIVE VISIT 04/01/2020 04/01/19, 04/19/2017, 09/12/2012 COVID-19 VACCINE ( season) 2023 03/06/2021, 06/15/2020, 05/18/2020 INFLUENZA VACCINE (#1) 2024 (Declined), 12/31/2017, 01/13/2013, Additional history exists HPV TEST 02/16/2029 02/17/2024 PAP 02/16/2029 02/17/2024, 11/1 11/2023, 04/19/2017 ZOSTER VACCINE (1 of 2) 2043 HPV VACCINE Completed 04/01/2019, 100 05/2017, 04/21/2017 DTAP/TDAP/TD VACCINE Discontinued 06/27/2022, 09/12/2012, 11/18/2003 MENINGITIS VACCINE Aged Out No longer eligible based on patient's age to complete this topic PNEUMOCOCCAL VACCINE: PEDIATRICS (0 to 5 YEARS) AND AT-RISK PATIENTS (6 to 49 YEARS) Aged Out No longer eligible based on patient's age to complete this topic Procedures Procedure Name Priority Date/Time Associated Diagnosis Comments PROGESTERONE Routine 09/06/2024 10:42 AM CDT Female infertility, unspecified MULTIPLEX VAGINAL PANEL BY PCR Routine 08/20/2024 4:49 PM CDT Pelvic and perineal pain T4 FREE Routine 08/13/2024 3:53 PM CDT Other specified hypothyroidism TSH Routine 08/13/2024 3:53 PM CDT Other specified hypothyroidism HEMOGLOBIN A1C Routine 08/13/2024 3:53 PM CDT Encounter for screening for diabetes mellitus VITAMIN D DEFICIENCY SCREENING Routine 08/13/2024 3:53 PM CDT Encounter for screening for other suspected endocrine disorder Encounter for screening for diseases of the blood and blood-forming organs and certain disorders involving the immune mechanism Encounter for screening for nutritional disorder Encounter for screening for other metabolic disorders HPV AND GYNECOLOGIC CYTOLOGY PANEL Routine 02/17/2024 9:10 AM PROFESSIONAL NURSING TUTOR Encounter for screening for malignant neoplasm of cervix from Last 3 Months or Most Recently Relevant to Health Maintenance Results * Progesterone (09/06/2024 10:42 AM CDT) Progesterone 20.8 ng/mL 09/06/2024 8:03 PM CDT [facility] Comment: Healthy Postmenopausal Women: Postmenopause: <=0.1 ng/mL Healthy Women: 1st Trimester: 11.0-44.3 ng/mL 2nd Trimester: 25.4-83.4 ng/mL 3rd Trimester: 58.7-214.0 ng/mL Healthy Women Cycle Phase: Follicular: <0.1-0.2 ng/mL Ovulation: 0.1-4.1 ng/mL Luteal: 4.1-14.5 ng/mL Healthy Women Cycle Sub Phase: Early Follicular: <0.1-0.3 ng/mL Intermediate Follicular: <0.1-0.2 ng/mL Late Follicular: <0.1-0.2 ng/mL Ovulation: <0.1-2.4 ng/mL Early Luteal: 2.4-15.1 ng/mL Intermediate Luteal: 4.8-20.9 ng/mL Late Luteal: 0.5-13.5 ng/mL Blood BLOOD SPECIMEN / Unknown Client Draw / Unknown 09/06/2024 10:42 AM CDT 09/06/2024 4:12 PM CDT Dian Wheeler MD LAB - BLOOD ORDERABLES F inal Result [facility] Core Lab [address] [facility], [address] [place] [address] * Multiplex Vaginal Panel by PCR (08/20/2024 4:49 PM CDT) Pathologist [facility] Bacterial Vaginosis Organism DNA Negative Negative 08/20/2024 10:20 PM CDT [facility] Comment: Indicator DNA target(s) related to bacterial vaginosis organisms is/are not detected. Organisms associated with bacterial vaginosis that are targeted in this assay include Atopobium spp., Bacterial Vaginosis-Associated Bacterium-2, and Megasphaera-1. Detected organisms are not reported individually. Greta Group DNA Not Detected Not Detected 08/20/2024 10:20 PM CDT [facility] Comment:Greta group specie s detected by this target include C. albicans, C. tropicalis, C. parapsilosis, C. dubliniensis. Greta glabrata / Greta krusei DNA Not Detected Not Detected 08/20/2024 10:20 PM CDT [facility] Trichomonas vaginalis DNA Not Detected Not Detected 08/20/2024 10:20 PM CDT [facility] Swab VAGINAL STRUCTURE / Unknown Non-blood Collection / Unknown 08/20/2024 4:49 PM CDT 08/20/2024 9:01 PM CDT Narrative [facility] - 08/20/2024 10:20 PM CDT The Xpert Xpress MVP test, performed on the [employer] Instrument Systems, is an automated, qualitative in vitro diagnostic test for the detection of DNA targets from anaerobic bacteria associated with bacterial vaginosis, Greta species associated with vulvovaginal candidiasis, and Trichomonas vaginalis. The assay uses clinician-collected and self-collected vaginal swabs from patients who are symptomatic for vaginitis/ vaginosis. The Xpert Xpress MVP test utilizes real-time polymerase chain reaction (PCR) for the amplification of specific DNA targets and utilizes fluorogenic target-specific hybridization probes to detect and differentiate DNA. It is intended to aid in the diagnosis of vaginal infections in women with a clinical presentation consistent with bacterial vaginosis, vulvovaginal candidiasis, or trichomoniasis. The assay targets three anaerobic microorgansims that are associated with bacterial vaginosis (BV). Other organisms that are not detected by the Xpert Xpress MVP test have also been reported to be associated with BV. The BV organism and Greta species targets of the Xpert Xpress MVP test can be commensal in women; positive results must be considered in conjunction with other clinical and patient information to determine the disease status. Karina Goff BAILER TENDERS SUPERVISOR [facility] LAB - MICRO GENER AL ORDERABLES Final Result [facility] Inf. Diseases Diag. Lab [address] [facility], [address] [place] [address], [facility] * Vitamin D Deficiency (08/13/2024 3:53 PM CDT) [facility] Vitamin D, Total (25-Hydroxy) 42 20 - 50 ng/mL 08/14/2024 11:13 AM CDT [facility] Comment:optimum levels Blood BLOOD SPECIMEN / Unknown Client Draw / Unknown 08/13/2024 3:53 PM CDT 08/13/2024 8:58 PM CDT [facility] - 08/14/2024 11:13 AM CDT Season, race, dietary intake, and treatment affect the concentration of 62-milxfpm-Cxdmdir D. Values may decrease during winter months and increase during summer months. Vitamin D determination is routinely performed by an immunoassay specific for 25 hydroxyvitamin D3. If an individual is on vitamin D2(ergocalciferol) supplementation, please specify 25 [place] vitamin D2 and D3 level determination by LCMSMS test VITD23. Karina Goff APRN [facility] LAB - BLOOD ORDER ABNER Final Result [facility] [place] [facility] Lab [address] [facility], [address] * TSH (08/13/2024 3:53 PM CDT) [facility] TSH 2.08 0.30 - 4.20 uIU/mL 08/14/2024 11:13 AM CDT [facility] Blood BLOOD SPECIMEN / Unknown Client Draw / Unknown 08/13/2024 3:53 PM CDT 08/13/2024 8:58 PM CDT us Karina Goff APRN [facility] - BLOOD ORDER ABNER Final Result Performing Organization Address City/[facility]/ZIP Co de Phone Number [facility] Core Lab [address] [facility], [address] * T4 free (08/13/2024 3:53 PM CDT) [facility] Free T4 1.22 0.90 - 1.70 ng/dL 08/14/2024 11:13 AM CDT [facility] Blood BLOOD SPECIMEN / Unknown Client Draw / Unknown 08/13/2024 3:53 PM CDT 08/13/2024 8:58 PM CDT us Karina Goff APRN [facility] LAB - BLOOD ORDER ABNER Final Result [facility] [place] Core Lab [address] [facility], [address] * Hemoglobin A1c (08/13/2024 3:53 PM CDT) [facility] Estimated Average Glucose 97 <117 mg/dL 08/13/2024 10:25 PM CDT [facility] Hemoglobin A1C 5.0 <5.7 % 08/13/2024 10:25 PM CDT [facility] Comment: Normal <5.7% Prediabetes 5.7-6.4% Diabetes 6.5% or higher Note: Adopted from ADA consensus guidelines. Blood BLOOD SPECIMEN / Unknown Client Draw / Unknown 08/13/2024 3:53 PM CDT 08/13/2024 8:58 PM CDT Karina Goff APRN [facility] LAB - BLOOD ORDER ABNER Final Result [facility] [place] [facility] Lab [address] [facility], [address] [place] [id number] * HPV and Gynecologic Cytology Panel (02/17/2024 9:10 AM PROFESSIONAL NURSING TUTOR) Human Papilloma Virus 16 DNA Negative Negative 02/18/2024 2:54 PM PROFESSIONAL NURSING TUTOR [facility] Human Papilloma Virus 18 DNA Negative Negative 02/18/2024 2:54 PM PROFESSIONAL NURSING TUTOR [facility] Human Papilloma Virus Other Negative Negative 02/18/2024 2:54 PM PROFESSIONAL NURSING TUTOR [facility] FINAL DIAGNOSIS This patient's sample is negative for high risk HPV DNA. METHODOLOGY: The [employer] Saint system uses automated extraction, simultaneous amplification of HPV (E6/E7 oncogenes) and beta-globin, followed by real time detection of fluorescent labeled HPV and beta globin using specific oligonucleotide probes. The test specifically identifies types HPV 16 DNA and HPV 18 DNA while concurrently detecting the rest of the high risk types (31, 33, 35, 39, 45, 51, 52, 56, 58, 59, 66 or 68). COMMENTS: This test is not intended for use as a screening device for woman under age 30 with normal cervical cytology. Results should be correlated with cytologic and histologic findings. Close clinical follow up is recommended. Please see the separate Gynecologic Cytology (Pap) report from the same collection date. 02/18/2024 2:54 PM PROFESSIONAL NURSING TUTOR MOLECULAR DIAGNOSTICS Brushing ENDOCERVICAL STRUCTURE / Unknown Non-blood Collection / Unknown 02/17/2024 9:10 AM PROFESSIONAL NURSING TUTOR 02/17/2024 2:50 PM PROFESSIONAL NURSING TUTOR Karina Ronna Goff BAILER TENDERS SUPERVISOR [facility] LAB - BLOOD ORDER ABNER Final Result [facility] [address] [facility] [address], [address] [place] [address], [facility] MOLECULAR DIAGNOSTICS [facility] Molecular Diagnostics [address] [facility] [address], [address] [place] [address], [facility] from Last 3 Months or Most Recently Relevant to Health Maintenance Insurance [facility] Care Teams Agent Broker Relationship Specialty Start Date End Date No Ref-Primary, Physician PCP - General 10/30/23 Mary Farah PA-C [address] , [facility] [address] [place] [address] Physician Dental Equipment Technician 10/30/23
--- OUTSIDE RECORDS SUMMARY | 2024-10-19 10:07 | XMS_ITS | Continuity of Care Document ---
Author Organization [facility], [id number] Address [address] [address] [place] [address] Assessment Encounter Date Assessment Date Assessment LastModified by Organization Details LastModified Time 10/18/2024 10/18/2024 I spent a total of [...] Call. The patient is located in their home- when receiving health services through telecommunication technology. [email or web address] Not available 10/17/2024 08:27:52 Plan of Treatment Reminders Order Date Submit Date Provider Last Modified By Organization Details Last Modified Time Details Appointments G_ARTIFIC IAL INSEMINAT ION 2024 10:30A M Dr. Reina Almodovar Not available Not available Not available Lab None recorded. Referral None recorded. Procedures None recorded. Surgeries None recorded. Imaging None recorded. Medication Orders None recorded. Patient TargetsNo targets recorded. Patient Instructions Encounter Date Encounter Id Patient Instructions Last Modified By Organization Details Last Modified Time 10/18/2024 [id number] -reviewed ultrasound findings, 22.4 mm follicle, 7 mm endometrium -plan IUI Friday or , Ovidrel trigger 10/18 or 10/19 -has appt with [facility] in October [email or web address] Not available 10/18/2024 11:35:56 Reason for Referral None Reported. Results Created Date Observation Date Name Description Value Unit Range Abnormal Flag Note LastModifiedBy Organization Detail LastModifiedTime 09/24/1909/23/2024 US, trans vagin al No observ ation record ed. [email or web address] [address], [place], [address], 10/05/2024 08:55:23 10/12/1910/11/2024 US, trans vagin al No observ ation record ed. [email or web address] [address], [place], [address], 10/17/2024 13:16:56 10/19/1910/18/2024 US, trans vagin al No observ ation record ed. [email or web address] [address], [place], [address], 10/18/2024 10:19:30 Result Notes None recorded. Problems Name Problem SNOMED Code Status Onset Date Resolution Date Notes Provider Name and Address Organization Details Recorded Time 71930797 Completed 202312/03/2023 Andra garcia null, [place] - [facility] 4 11:29:27 Blood group O Rh(D) negative 480653557 Completed 2023 Evelyn Meza null, [place] - [facility] 4 11:28:56 Blood group O Rh(D) negative 564603048 Active 2023 Evelyn Meza null, [place] - [facility] 4 11:28:56 Problem Notes None recorded. Procedures Surgical History Date Name Laterality Status Provider Name and Address Organization Details Recorded Time 09/25/19 25 Intrauterine Insemination ([facility]) completed KAYODE HARDEN-BC [address] [facility],[address], [place], [address], [place] [facility] 09/24/2024 13:23:18 09/01/19 25 Intrauterine Insemination ([facility]) [place] [address], [place], [address], [facility] SANITATION LABORER 08/31/2024 13:59:14 02/17/20 24 Date of Last Pap Smear completed Gabe Tilley [facility] 02/23/2024 14:37:49 12/11/19 24 HYSTEROSCOPIC TISSUE REMOVAL (SURG) completed Andra Venegas [facility] SANITATION LABORER 12/16/2023 13:57:19 09/26/19 23 [place]steroscopy [place] [address] [facility],[address], [place], [address], [facility]ITATION LABORER 11/23/2023 17:45:37 operative procedure on knee completed pierre Felton [facility] LAB[facility]ER 09/16/2024 08:17:57 Imaging Results None recorded. 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 662405285 Z31.81 N97.8 Female infertility 98422 08 N97.9 Cyst of right ovary 1223 335133 9207622 N83.201 -3.5 cm, unchanged from last cycle-elisha tor for any right sided pain [id number] KARLO RODRIGUEZ DO [id number] [place]_[address] ,[address] [address] 10/11/2024 08:26:05 10/11/2024 08:53:23 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 830963458 Z31.81 N97.8 [id number] CR LANG [facility] [id number] [place]_ED OFE [address] [place] [address], [address] [place] [address] 10/18/2024 11:08:39 10/18/2024 15:42:32 Female infertility 6313227 N97.9 Cyst of right ovary 1223 302726 0066174 N83.201 -stable, asymptomat ic, monitor for any right sided pain [id number] KARLO RODRIGUEZ DO [id number] [place]_[address] ,[address] [place] [address] 10/18/2024 08:28:09 10/18/2024 08:56:29 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 303251271 Z31.81 N97.8 Health Concerns Section Related Observation LastModified by Organization Detai ls LastModified Time None Recorded Concern Status LastModified by Organization Details LastModified Time None Recorded Payers Encounter Date Sequence Insurance Name Policy Number Policy Reis Covered Member ID Reis Member ID Guarantor Name 10/18/2024 1 [place] [id number] Naga Murrieta [id number] Naga Murrieta Notes Date Note Type Note Provider Name and Address Organization Details Recorded Time 10/18/2024 text/html Cycle #: 3Cycle Day:Cycle Medications: [...] Available Not Available Not Available OBGyn Episode No OBEpisode recorded.
--- OUTSIDE RECORDS SUMMARY | 2024-10-19 10:07 | XMS_ITS | Encounter Summary ---
Author Organization [facility] Address [address] [place] [address] Care Team Providers Care Precision Lens Generator Name Role Phone No Ref-Primary, Physician Primary Care Provider Mary Farah PA-C Unavailable [phone] Encounter Details Date Type Department Care Team (Late st Contact Info) Description 12/02/2023 MyC Medical Advice [facility] [address] [place] [address] [place] [address] Mary Farah PA-C [address] [place] [address] Social History Tobacco Use Types Packs/Day Years [...] Help Needed Not on file 10/30 Comments Yes Sex and Gender Information Value Date Recorded Sex Assigned at Female 03/22/2019 1:30 PM SEARCH CONSULTANT Legal Sex Female 3:35 AM SEARCH CONSULTANT Gender Identity Female 03/22/2019 1:30 PM SEARCH CONSULTANT Sexual Orientation Straight 03/22/2019 1: 30 PM SEARCH CONSULTANT Occupation Industry Job Start Date Job End Date Teacher Not on file Not on file Not on file documented as of this encounter Plan of Treatment Not on file documented as of this encounter Visit Diagnoses Not on filedocumented in this encounter Additional Health Concerns Assessment Noted Time PHQ-9 Depression Total Score: 0 04/01/19 20 9:52 AM SEARCH CONSULTANT documented as of this encounter Care Teams Precision Lens Generator Relationship Specialty Start Date End Date No Ref-Primary, Physician PCP - General 10/30/23 Mary Farah PA-C [address] , [facility] [address] [place] [address] Physician Data Entry Processor 10/30/23 documented as of this encounter
--- OUTSIDE RECORDS SUMMARY | 2024-10-19 10:07 | XMS_ITS | Continuity of Care Document ---
Author Organization [facility] COMMUNICATIONS ADMINISTRATOR, [id number] Address [address] [facility] [address] [place] [address] Assessment No assessment recorded. Plan of Treatment Reminders Order Date Submit [...] By Organization Details Last Modified Time 09/24/2024 [id number] -can also cover w/IC tomorrow -UPT in 2 wks if no menses -call with CD 1 if wants to start another medicated/monitor ed cycle [email or web address] Not available 09/24/2024 13:24:48 Reason for Referral None Reported. Results Created [...] Lutea l: 0.5-1 3.5 ng/mL Not Available [address], [place], [address], 09/06/2024 21:06:28 09/17/19 25 09/16/2024 US, trans vagin al No observ ation record ed. [email or web address] [address], [place], [address], 09/21/2024 08:44:22 09/24/19 25 09/23/2024 US, trans vagin al No observ ation record ed. [email or web address] [address], [place], [address], 10/05/2024 08:55:23 10/12/19 25 10/11/2024 US, trans vagin al No observ ation record ed. [email or web address] [address], [place], [address], 10/17/2024 13:16:56 10/19/19 25 10/18/2024 US, trans vagin al No observ ation record ed. [email or web address] [address], [place], [address], 10/18/2024 10:19:30 Result Notes None recorded. Problems Name Problem SNOMED Code Status Onset Date Resolution Date Notes Provider Name and Address Organization Details Recorded Time 17025158 Completed 202312/03/2023 Andra Parker d null, [facility] COMMUNICATIONS ADMINISTRATOR 4 11:29:27 Blood group O Rh(D) negative 986351057 Completed 2023 Evelyn Meza null, [facility]URCH COMMUNICATIONS ADMINISTRATOR 4 11:28:56 Blood group O Rh(D) negative 951835053 Active 2023 Evelyn Meza null, [facility]/GYN 4 11:28:56 Problem Notes None recorded. Procedures Surgical History Date Name Laterality Status Provider Name and Address Organization Details Recorded Time 09/25/19 25 Intrauterine Insemination ([facility]) completed DAWSON HARDEN [id number] [facility],[address], [place], [address], [facility]/GYN 09/24/2024 13:23:18 09/01/19 25 Intrauterine Insemination ([facility]) [place] [address] [facility],[address], [place], [address], [facility] CHURCH COMMUNICATIONS ADMINISTRATOR 08/31/2024 13:59:14 02/17/20 24 Date of Last Pap Smear completed Gabe Tilley [facility] CHURCH COMMUNICATIONS ADMINISTRATOR 02/23/2024 14:37:49 12/11/19 24 HYSTEROSCOPIC TISSUE REMOVAL (SURG) completed Andra Venegas [facility]URCH COMMUNICATIONS ADMINISTRATOR 12/16/2023 13:57:19 09/26/19 23 [place]steroscopy [place] [address] [facility],[address], [place], [address], [facility] CHURCH COMMUNICATIONS ADMINISTRATOR 11/23/2023 17:45:37 operative procedure on knee completed Jennifer Felton [facility]URCH COMMUNICATIONS ADMINISTRATOR 09/16/2024 08:17:57 Imaging Results None recorded. Procedure [...] Not Available Not Available No t Available Imelda (28) 1 mg-35 mcg tablet Take 1 tablet by mouth daily. Skip placebo tablets. 10/29 completed Not Available Not Available Not Available Vitals Date Recorded Body height Body mass index (BMI) Body weight Systolic And Diastolic Provider Name and Address Organization Details Last Updated DateTime 09/24/2024 185.42 cm 23.2 kg/m2 59446.82 g 100/62 mm[Hg] Jayla Rudolphr [facility] COMMUNICATIONS ADMINISTRATOR 09/24/2024 12:23:07 Social History Question Answer Notes LastModified by Organizat ion Details LastModified Time Tobacco Smoking Status Never Smoker [facility] Bartholomew [facility] COMMUNICATIONS ADMINISTRATOR 09/16/2024 08:16:44 What Is Your Level Of Caffeine Consumption? 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8 Normal baseline USPlan letrozole 2.5mg CD#5-9Retu CD#12 for (09/23), with possible IUI either 09/24 or Mon tart OPK's CD#10 [id number] KAYODE ZAVALETA [address] ,[address] [facility] [place] [address] 09/23/2024 08:20:28 09/23/2024 11:18:47 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 DAWSON HARDEN [address] [facility],[address], [place], [address], [place] [facility] COMMUNICATIONS ADMINISTRATOR 09/24/2024 13:25:20 OBGyn Episode No OBEpisode recorded.
--- OUTSIDE RECORDS SUMMARY | 2024-10-19 10:07 | XMS_ITS | Continuity of Care Document ---
Author Organization [facility], [id number] Address [address] [facility] [address] [place] [address] Assessment Encounter Date Assessment Date Assessment LastModified by Organization Details LastModified Time 09/23/2024 09/23/2024 I spent a total of 31 minutes providing care for this patient including: [...] Excludes time spent on separately identifiable services. [email or web address] Not available 09/23/2024 11:09:20 Plan of Treatment Reminders Order Date Submit Date Provider Last Modified By Organization Details Last Modified Time Details Appointments G_ARTIFIC IAL INSEMINAT ION 2024 10:30A M Dr. Reina Almodovar Not available Not available Not available Lab None recorded. Referral breast center referral 2024 025 [email or web address] Sharee Palm MD, [address], [address], [place], [address], 09/23/2024 11:18:48 Procedures None recorded. Surgeries None recorded. Imaging None recorded. Medication Orders Ovidrel 250 mcg/0.5 mL subcutane ous syringe 2024 025 [email or web address] [id number], [address], [place], [id number], 09/23/2024 10:28:03 Patient TargetsNo targets recorded. Patient InstructionsNo instructions recorded. Reason for Referral Breast Center Referral for P ain of left breast Referring Physician: Sharee Alvarado, FAMILY EDUCATOR, Encounter Date: 09/23/2024 Results Created Date Observation Date Name Description Value Unit Range Abnormal Flag Note LastModifiedBy Organization Detail LastModifiedTime 09/07/1909/06/2024 PROGE STERO NE progesterone 20.8 NG/mL Healt [...] Lutea l: 0.5-1 3.5 ng/mL Not Available [address], [place], [address], 09/06/2024 21:06:28 09/17/1909/16/2024 US, trans vagin al No observ ation record ed. colby Velasquez [address], [facility], [place], [address], 09/21/2024 08:44:22 09/24/1909/23/2024 US, trans vagin al No observ ation record ed. [email or web address] [address], [place], [address], 10/05/2024 08:55:23 10/12/19 25 10/11/2024 US, trans vagin al No observ ation record ed. [email or web address] [address], [place], [address], 10/17/2024 13:16:56 10/19/19 25 10/18/2024 US, trans vagin al No observ ation record ed. [email or web address] [address], [place], [address], 10/18/2024 10:19:30 Result Notes None recorded. Problems Name Problem SNOMED Code Status Onset Date Resolution Date Notes Provider Name and Address Organization Details Recorded Time 55860234 Completed 202312/03/2023 Andra garcia null, [place] [facility] 4 11:29:27 Blood group O Rh(D) negative 756045738 Completed 2023 Evelyn Meza null, [place] [facility] 4 11:28:56 Blood group O Rh(D) negative 671988217 Active 2023 Evelyn Meza null, [place] [facility] 4 11:28:56 Problem Notes None recorded. Procedures Surgical History Date Name Laterality Status Provider Name and Address Organization Details Recorded Time 09/25/19 25 Intrauterine Insemination ([facility]) completed KAYODE HARDEN-FERNANDO [address] [facility],[address], [place], [address], [place] [facility] FAMILY EDUCATOR 09/24/2024 13:23:18 09/01/19 25 Intrauterine Insemination ([facility]) [place] [address] [facility],[address], [place], [address], [place] [facility] FAMILY EDUCATOR 08/31/2024 13:59:14 02/17/20 24 Date of Last Pap Smear completed Gabe Tilley [facility] FAMILY EDUCATOR 02/23/2024 14:37:49 12/11/19 24 HYSTEROSCOPIC TISSUE REMOVAL (SURG) completed Andra Sagastumefield [facility] FAMILY EDUCATOR 12/16/2023 13:57:19 09/26/19 23 [place]steroscopy [place] [address] [facility],[address], [place], [address], [facility] FAMILY EDUCATOR 11/23/2023 17:45:37 operative procedure on knee completed Jennifer Felton [facility] FAMILY EDUCATOR 09/16/2024 08:17:57 Imaging Results None recorded. Procedure [...] t Available diclofenac sodium 75 mg tablet,penny owusu release 11/20 completed Not Available Not Available [...] Tobacco Smoking Status Never Smoker [facility] Bartholomew FAMILY EDUCATOR 09/16/2024 08:16:44 What Is Your Level Of Caffeine Consumption? None Information not available 09/16/2024 Spouses/Partners Name: Ti kennedy Information not available 09/16/2024 Have You Ever [...] SNOMED-CT Code Diagnosis ICD10 Code Diagnosis Note [id number] SVEN EDMONDSON MD [id number] THDALE_[address] ,[address] 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 673434318 Z31.81 N97.8 Normal baseline USPlan letrozole 2.5mg CD#5-9Retu rn CD#12 for US (09/23), with possible IUI either Fri 09/24 or Mon tart OPK's CD#10 Health Concerns Section Related Observation LastModified by Organization Detai ls LastModified Time None Recorded Concern Status LastModified by Organization Details LastModified Time None Recorded Payers Encounter Date Sequence Insurance Name Policy Number Policy Reis Covered Member ID Reis Member ID Guarantor Name 09/23/2024 1 [place] [id number] Naga Murrieta [id number] Naga Murrieta Notes Date Note Type Note Provider Name and Address Organization Details Recorded Time 09/23/2024 text/html Breast Pain ([facility])Reported bypatient.Left Breast:upper outer quadrant; lower outer quadrant * Quality:achy; pressure * Severity:moderate * Duration:4 weeks * Timing:intermittent; not related to menses * Context:no history of abnormal mammogram; no personal history of breast cancer; no personal history of ovarian cancer; no family history of breast, ovarian, uterine or colon cancer * Associated Signs & Symptoms:no breast mass; no engorgement; no fever; no redness; no skin changes; no nipple discharge; nipple not inverted Cycle #: 2Cycle Day: 12Cycle Medications: letrozole 2.5mgMedication taken on: Plan CD#5-9Ultrasound findings:Endometrium: trilaminarmmLeft Ovarian Follicles: n/aRight Ovarian Follicles: n/a, 3.8cm simple cystFluid in Cul-de-sac: noTrigger Shot: possibleInsemination: yes - planned Semen Analysis: Abnormal motility and morphologyTubal Patency Study: Not doneLab Results: Not done. Day 21 progesterone = 20.8TSH 2.08 (on Synthroid 25mcg) Results of Previous Cycle:Cycle 1: unmedicated, did IUI after spontaneous ovulation. Had +LH surgeon CD#15 last cycleCycle 2: letrozole 2.5mg, good response cycle day 12, planning trigger shot CD 12 and IUI the next day. Additionally, Naga notes over the past month she has noticed increased left breast pain. It is intermittent. Denies nipple discharge, nipple inversion, trauma to the area, no new bras, no recent weight gain or weight loss. SHAREE ALVARADO, KAYODE [address] [facility],[address], [place], [address], [place] [facility] FAMILY EDUCATOR 09/23/2024 11:09:33 OBGyn Episode No OBEpisode recorded.
--- OUTSIDE RECORDS SUMMARY | 2024-10-19 10:07 | XMS_ITS | Continuity of Care Document ---
Author Organization [facility] TECHNICIAN, [id number] Address [address] [place] [address] Assessment Encounter Date Assessment Date Assessment LastModified by Organization Details LastModified Time 09/16/2024 09/16/2024 This service was provided using telemedicine including synchronous audio and/or video approved technology. The patient verbally Consents to telemedicine services, virtual check-ins and evisits. Telemedicine consultation via Synchronous Audio and Video Call. The patient is located in their home-10 when receiving health services through telecommunication technology. I spent a total of 20 minutes providing care for this patient including: preparing to see the patient, obtaining a medical history, completing a medically appropriate physical exam, completing documentation of visit information and plans in the EMR, counseling the patient and/or caregiver regarding her diagnosis, treatment options and follow up plans, as well as any necessary communication of subsequent test results to the patient, reviewing test results, reviewing medical records, Excludes time spent on separately identifiable services. Assessment and Plan for this visit include the following: [email or web address] Not available 09/16/2024 11:10:56 Plan of Treatment Reminders Order Date Submit Date Provider Last Modified By Organization Details Last Modified Time Details Appointments G_ARTIFIC IAL INSEMINAT ION 2024 10:30A M Dr. Reina Almodovar Not available Not available Not available Lab None recorded. Referral None recorded. Procedures None recorded. Surgeries None recorded. Imaging None recorded. Medication Orders None recorded. Patient TargetsNo targets recorded. Patient InstructionsNo instructions recorded. Reason for Referral None Reported. Results Created Date Observation Date Name Description Value Unit Range Abnormal Flag Note LastModifiedBy Organization Detail LastModifiedTime 05/08/20/2024 MULTI PLEX VAGIN AL PANEL BY PCR verena group DNA Not Detect ed not detect ed Anastacia da group speci es detec lucia by this targe t inclu de C. albic ans, C. tropi calis , C. parap park is, C. dubli ni is. Not Available [address], [place], [address], 08/20/2024 23:21:38 08/21/19 25 08/20/2024 MULTI PLEX VAGIN AL PANEL BY PCR bacterial vaginosis organism DNA Negati ve negati ve Indic ator DNA targe t(s) relat ed to bacte rial vagin osis organ isms is/ar e not detec lucia. Organ isms assoc iated with bacte rial vagin osis that are targe lucia in this assay inclu de Atopo bium spp., Bacte rial Vagin osis- Assoc iated Bacte rium- 2, and Megas phaer a-1. Detec lucia organ isms are not repor lucia indiv idual ly. Not Available [address], [place], [address], 08/20/2024 23:21:38 08/21/19 25 08/20/2024 MULTI PLEX VAGIN AL PANEL BY PCR verena glabrata/ verena krusei DNA Not Detect ed not detect ed Not Available [address], [place], [address], 08/20/2024 23:21:38 08/21/1908/20/2024 MULTI PLEX VAGIN AL PANEL BY PCR trichomonas vaginalis DNA Not Detect ed not detect ed The Xpert ?? Xpres s MVP test, perfo rmed on the GeneCerac pert? ? Instr ument Syste ms, is an autom ated, quali tativ e in vitro diagn ostic test for the detec tion of DNA targe ts from anaer obic bacte bobby assoc iated with bacte rial vagin osis, Anastacia da speci es assoc iated with vulvo vagin al anastacia diasi s, and Trich omona s vagin yina. The assay uses clini barb- colle cted and self- colle cted vagin al swabs from patie nts who are sympt omati c for vagin itis/ vagin osis. The Xpert ?? Xpres s MVP test utili zes real- time polym erase chain react ion (PCR) for the ampli ficat ion of speci fic DNA targe ts and utili zes fluor ogeni c targe t-spe cific hybri dizat ion probe s to detec t and diffe renti ate DNA. It is inten ded to aid in the diagn osis of vagin al infec tions in women with a clini joy prese ntati on consi stent with bacte rial vagin osis, vulvo vagin al anastacia diasi s, or trich omoni asis. The assay targe ts three anaer obic micro organ lerner that are assoc iated with bacte rial vagin osis (BV). Other organ isms that are not detec lucia by the Xpert ?? Xpres s MVP test have also been repor lucia to be assoc iated with BV. The BV organ ism and Anastacia da speci es targe ts of the Xpert ?? Xpres s MVP test can be comme nsal in women ; posit norma resul ts must be consi dered in conju nctio n with other clini joy and patie nt infor matio n to deter mine the disea se statu s. Not Available [address], [place], [address], 08/20/2024 23:21:38 09/07/19 25 09/06/2024 PROGE STERO NE progesterone [...] Lutea l: 0.5-1 3.5 ng/mL Not Available [address], [place], [address], 09/06/2024 21:06:28 09/17/19 25 09/16/2024 US, trans vagin al No observ ation record ed. [email or web address] [address], [place], [address], 09/21/2024 08:44:22 09/24/19 25 09/23/2024 US, trans vagin al No observ ation record ed. [email or web address] [address], [place], [address], 10/05/2024 08:55:23 10/12/19 25 10/11/2024 US, trans vagin al No observ ation record ed. [email or web address] [address], [place], [address], 10/17/2024 13:16:56 10/19/19 25 10/18/2024 US, trans vagin al No observ ation record ed. [email or web address] [address], [place], [address], 10/18/2024 10:19:30 Result Notes None recorded. Problems Name Problem SNOMED Code Status Onset Date Resolution Date Notes Provider Name and Address Organization Details Recorded Time 58394771 Completed 202312/03/2023 Andra garcia null, [facility] [employer] SYSTEM[employer] TECHNICIAN 4 11:29:27 Blood group O Rh(D) negative 396881705 Completed 2023 Evelyn Meza null, [facility] [employer] SYSTEM[employer] TECHNICIAN 4 11:28:56 Blood group O Rh(D) negative 022463883 Active 2023 Evelyn Meza null, [facility] [employer] SYSTEM[employer] TECHNICIAN 4 11:28:56 Problem Notes None recorded. Procedures Surgical History Date Name Laterality Status Provider Name and Address Organization Details Recorded Time 09/25/19 25 Intrauterine Insemination ([facility]) completed DAWSON HARDEN [address] [facility],[address], [place], [address], [facility] [employer] SYSTEM[employer] TECHNICIAN 09/24/2024 13:23:18 09/01/19 25 Intrauterine Insemination ([facility]) [place] [address] [facility],[address], [place], [address], [facility] [employer] SYSTEM[employer] TECHNICIAN 08/31/2024 13:59:14 02/17/20 24 Date of Last Pap Smear completed Gabe Tilley [facility] [employer] SYSTEM[employer] TECHNICIAN 02/23/2024 14:37:49 12/11/19 24 HYSTEROSCOPIC TISSUE REMOVAL ([facility]) completed Andra Venegas [facility] [employer] SYSTEM[employer] TECHNICIAN 12/16/2023 13:57:19 09/26/19 23 [place]steroscopy [place] [address] [facility] [facility],[address], [place], [address], [facility] [employer] SYSTEMS TECHNICIAN 11/23/2023 17:45:37 operative procedure on knee completed Jennifer Felton [facility] [employer] SYSTEMS TECHNICIAN 09/16/2024 08:17:57 Imaging Results None recorded. Procedure [...] Available Not Available No t Available Dasetta () 1 mg-35 mcg tablet Take 1 tablet by mouth daily. Skip placebo tablets. 10/29 completed Not Available Not Available Not Available Vitals None Recorded Social History Question Answer Notes LastModified by Organizat ion Details LastModified Time Tobacco Smoking Status Never Smoker [facility] [employer] TECHNICIAN 09/16/2024 08:16:44 What Is Your Level Of [...] SNOMED-CT Code Diagnosis ICD10 Code Diagnosis Note [id number] KAYODE HARDEN- [id number] THDALE_BU [address] ,[address] [place] [address] 08/20/2024 16:56:38 08/25/2024 11:24:19 Vaginal pain 15618834 R10.2 [id number] SVEN EDMONDSON MD [id number] [address] ,[address] [place] [address] 08/31/2024 11:40:34 08/31/2024 14:04:02 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 [id number] Z31.81 N97.8 +LH surge on CD#15.Toda y is CD#16 and IUI performedP elijah to return next Friday for progestero ne level [id number] ALISIA DELGAOD MD [id number] [address] ,[facility] [address] [place] [address] 09/16/2024 08:24:23 09/16/2024 11:59:19 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 [id number] Z31.81 N97.8 [id number] SVEN EDMONDSON MD [id number] [address] ,[address] [place] [address] 09/16/2024 10:51:54 09/16/2024 11:58:46 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 [id number] Z31.81 N97.8 Normal baseline USPlan letrozole 2.5mg CD#5-9Retu rn CD#12 for (09/23), with possible IUI either 09/24 or Fritart OPK's CD#10 Health Concerns Section Related Observation LastModified by Organization Detai ls LastModified Time None Recorded Concern Status LastModified by Organization Details LastModified Time None Recorded Payers Encounter Date Sequence Insurance Name Policy Number Policy Reis Covered Member ID Reis Member ID Guarantor Name 09/16/2024 1 [place] [id number] Naga Murrieta [id number] Naga Murrieta Notes Date Note Type Note Provider Name and Address Organization Details Recorded Time 09/16/2024 text/html Cycle #: 2Cycle Day: 5Cycle Medications: letrozole 2.5mgMedication taken on: Plan CD#5-9Ultrasound findings:Endometrium: trilaminar4.3mmLeft Ovarian Follicles: n/aRight Ovarian Follicles: n/a, 3.8cm simple cystFluid in Cul-de-sac: noTrigger Shot: possibleInsemination: yes - planned Semen Analysis: Abnormal motility and morphologyTubal Patency Study: Not doneLab Results: Not done. Day 21 progesterone = 20.8TSH 2.08 (on Synthroid 25mcg) Results of Previous Cycle:Cycle 1: unmedicated, did IUI after spontaneous ovulation. Had +LH surge on CD#15 [place] [address] [facility],[address], [place], [address], [facility] [employer] SYSTEM[employer] TECHNICIAN 09/16/2024 11:12:58 OBGyn Episode No OBEpisode recorded.
--- OUTSIDE RECORDS SUMMARY | 2024-10-19 10:07 | XMS_ITS | CCD ---
Author Name Interface, Y0Zlukepn lity Address [address] [address] Organization [facility] Address [address] [place] [address] Care Team Providers Care Senior Biostatistician/Group Leader Name Role Phone Farshad Gasca CNP Unavailable Unavailable Allergies and Adverse Reactions Medication/Group Name Reaction Severity Date No known allergies Care Plan Date Type Value 10/22/2024 APPOINTMENT HIGH RISK NEW PT 60 MIN 10/11/2024 APPOINTMENT NEW PT CONSULT 6 0 MIN Reason for Visit NEW PT CONSULT 60 MIN Encounters Date Name 10/11/2024 Breast pain Immunizations Date Name Route Dose Instructions Refusal Reason Stat us Covid-19 vaccine (Pfizer) Patient declined/rejected Not Administered Flu vaccine - Adult Patient declined/rejected Not Administered Medications Date Name Route Dose Frequency Instructions Start Date End Date Status Cholecalciferol Oral active Coenzyme Q10 Oral active Tennyson-3 Fatty Acids Oral DHA stopped Levothyroxine Oral QD active Choriogonadotropin aida Subcutaneous ac tive Miscellaneous Drug Ovasitol active Sertraline Oral QD a ctive Miscellaneous Drug P erelel Conception support active EPA/DHA essentials Oral active Vitamin E Oral ac tive Problems Diagnosis Status Date of Diagnosis Resolution Date Breast pain Active Procedures Date Category Name Instructions Status 12/12/2024 Physician Order RTC MD Ordered Social History Date Name Value 10/11/2024 Smoking Status Never smoker 10/11/2024 Sex Female Visits Date Type Value 10/22/2024 HIGH RISK NEW PT 60 MIN Vital Signs Date Type Value 10/11/2024 Heart Beat 52.00 10/11/2024 Respiratory Rate 16.00 10/11/2024 Oxygen Saturation 98.00 10/11/2024 Intravascular Systolic 105 10/11/2024 Intravascular Diastolic 68 10/11/2024 BSA 2.04 10/11/2024 Weight 175.80 10/11/2024 Height 73.00 10/11/2024 BMI 23.19 10/11/2024 Pain Scale 0.00 Notes Section * Surg Benign Consult Patient Name:?MARIA M SILVA Date of :?1995 Date of Service:?10/11/2024 Attending Physician:?Farshad Gasca (Medical Oncology) INITIAL BREAST SURGICAL CONSULTATION Reason for Consult: Breast pain? History of Present Illness: 29-year-old female patient presenting with left?breast pain. She describes the pain as more of a soreness that is very intermittent and happens in the left upper outer breast. ?She does not correlated with her cycles or any other?times of the month. ?She?has slightly increased working out but no significant change in?her routine.? This did start around the time that her IUI?treatments are started. At that time, patient denied pain in the breast, nipple discharge, skin changes or other concerninglumps or bumps. Patient denies trauma to the area. Patient was referred to my clinic? by Uzma GÓMEZ Breast Cancer Risk Assessment: , 1 miscarriage Age at first :?N/A Menarche at age unknown Menopause at age premenopausal OCP:?Greater?years HRT:?No? Fertility treatment:?2 cycles of IUI, 1 with letrozole Breast feeding:?No Benign breast biopsy:?No Performance Status ECOG/Karnofsky Family History No family history of breast or ovarian cancer Maternal cousin with benign brain tumor Paternal grandmother with peritoneal cancer Maternal cousin with BELLSTAFF lymphoma of the spine Past Medical and Surgical History PMH:?Infertility PSH:?Knee surgery x 3, hysteroscopy?with septoplasty Last DISPLAY FABRICATOR Exam: A couple months ago, no date given Smoking Status Smoking Status: Smoking Tobacco : Never smoker; Smokeless Tobacco : none found; Vaping : none found Current Medications Medication List Name Date EPA/DHA essentials Oral 10/11/2024 Levothyroxine Oral 10/08/2024 Sertraline Oral 10/08/2024 Ovidrel (Choriogonadotropin aida Subcuta neous) 10/11/2024 Miscellaneous Drug 10/11/2024 Miscellaneous Drug 10/11/2024 Vitamin D3 (Cholecalciferol Oral) 2024 Vitamin E Oral 10/11/2024 Coenzyme Q10 Oral 10/11/2024 Reviewed and notable for Ovidrel, previously on letrozole?for IUI Allergies No known medication allergies Social History Alcohol, tobacco, drug use:?Denies tobacco, drugs, alcohol Occupation: Teacher at [employer] Lives 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 Negative for weight loss, weight gain, fever, chills, fatigue. Respiratory:? Negative for cough, shortness of breath, dyspnea. Cardiovascular:? Negative for? chest pain, palpitations, syncope. Gastrointestinal:? Negative for nausea, vomiting, changes in bowel habits, abdominal pain, jaundice. Integument/Breast:? Negative for other skin changes aside from those noted in the HPI related to? the breast. Hematologic/lymphatic:? Negative for easy bruising, bleeding, history of bleeding disorders, lymphadenopathy. Psychiatric:? Negative for depression or sleep disturbances Endocrine:? Negative for? heat or cold intolerances Gynecologic:? Negative for vaginal dryness, vaginal spotting,? vaginal discharge. Physical Exam Vitals: Blood pressure: 105/68, Sitting, R arm, Pulse: 52, Temperature: , Respirations: 16, O2 sat: 98%, AtRest, Room Air, Pain Scale: 0, Height: 73 in, Weight: 175.8 lb, BSA: 2.04, BMI: 23.19 kg/m2 Immunizations: Covid-19 vaccine (Pfizer) (10/11/2024), Patient declined/rejected; Flu vaccine - Adult (10/11/2024), Patient declined/rejected Oxygen Sats 98%, At Rest, Room Air GENERAL: Well appearing female HEENT: NCAT, EOMI, sclera anicteric CHEST: breathing non labored and even RIGHT BREAST: no well defined masses or lesions, no skin changes, no nipple discharge, no nipple retraction,?she does have?a dense area of glandular tissue in the upper outer aspect of her breast?which is the same on the left LEFT BREAST: no well defined masses or lesions, no skin changes, no nipple discharge, no nipple retraction?she does have a dense area of glandular tissue in the upper outer aspect of her breast which is the same on the right, this area corresponds to her area of tenderness?however there are no discrete palpable lesions within this area?or overlying skin changes.? LYMPH: no axillary, supraclavicular, infraclavicular, or cervical lymphadenopathy bilaterally ABDOMEN: soft, non-tender, non-distended, no masses BACK: no spinal tenderness EXTREMITIES: warm, well perfused, normal range of motion upper extremities, normal gait Imaging Reviewed as per HPI Pathology Reviewed as per HPI Assessment: 29-year-old female patient with left breast pain. Plan: After performing a clinical exam and reviewing?Kenzie's history,?I recommend that we proceed with conservative management of her breast pain including massage, supportive bra,?hot/cold compresses to the area,?additionally continuing to monitor the pain?as she goes through IUI.?I believe that this is?linked to hormonal changes?with this treatment as able started around the same time?and the pain is intermittent. ?I did discuss with?her that she?should continue self breast awareness?and make us aware of any changes to her skin, nipple, breast contour,?breast size,?palpable?lumps.? I would like to evaluate her again in 2 months?after?attempting?these more conservative measures.? If the pain progresses or if she notices any changes, I do recommend that she call?for further evaluation and possible imaging. 30 minutes spent on day of encounter in review of records, exam, discussion, counseling, coordination of care, orders, and documentation.? Thank you for allowing me to see MARIA M SILVA in consult. Joy Hay DO CC: FAX Karina Joshi NP (Referring) Electronically signed by Joy Hay DO 10/11/2024 10:07 CDT
--- OUTSIDE RECORDS SUMMARY | 2024-10-19 10:07 | XMS_ITS | Continuity of Care Document ---
Author Organization SIL[facility] - IRONING WORKER, [id number] Address [address] [facility] [address] [place] [address] Assessment No assessment recorded. Plan of Treatment Reminders Order Date Submit Date Provider Last Modified By Organization Details Last Modified Time Details Appointments G_ARTIFIC IAL INSEMINAT ION 2024 10:30A M Dr. Reina Almodovar Not available Not available Not available Lab None recorded. Referral None recorded. Procedures None recorded. Surgeries None recorded. Imaging US, transvagi nal 2024 025 lkoidahl [id number] le_gonzález, [address], [address], [place], [address], 09/23/2024 14:07:09 Medication Orders None recorded. Patient TargetsNo targets [...] Lutea l: 0.5-1 3.5 ng/mL Not Available [address], [place], [address], 09/06/2024 21:06:28 09/17/19 25 09/16/2024 US, trans vagin al No observ ation record ed. [email or web address] [address], [place], [address], 09/21/2024 08:44:22 09/24/19 25 09/23/2024 US, trans vagin al No observ ation record ed. [email or web address] [address], [place], [address], 10/05/2024 08:55:23 10/12/19 25 10/11/2024 US, trans vagin al No observ ation record ed. jjaqua [address], [place], [address], 10/17/2024 13:16:56 10/19/19 25 10/18/2024 US, trans vagin al No observ ation record ed. [email or web address] [address], [place], [address], 10/18/2024 10:19:30 Result Notes None recorded. Problems Name Problem SNOMED Code Status Onset Date Resolution Date Notes Provider Name and Address Organization Details Recorded Time 76728352 Completed 202312/03/2023 Andra coleman, [facility] IRONING WORKER 4 11:29:27 Blood group O Rh(D) negative 624877594 Completed 2023 Evelyn Meza null, [facility] IRONING WORKER 4 11:28:56 Blood group O Rh(D) negative 238222493 Active 2023 Evelyn Meza null, [facility] IRONING WORKER 4 11:28:56 Problem Notes None recorded. Procedures Surgical History Date Name Laterality Status Provider Name and Address Organization Details Recorded Time 09/25/19 25 Intrauterine Insemination ([facility]) completed KAYODE HARDEN- [address] [facility],[address], [place], [address], [facility]/GYN 09/24/2024 13:23:18 09/01/19 25 Intrauterine Insemination ([facility]) [place] [id number] [facility],[address], [place], [address], [facility] IRONING WORKER 08/31/2024 13:59:14 02/17/20 24 Date of Last Pap Smear completed Gabe Tilley [facility] IRONING WORKER 02/23/2024 14:37:49 12/11/19 24 HYSTEROSCOPIC TISSUE REMOVAL (SURG) completed Andra Venegas [facility] IRONING WORKER 12/16/2023 13:57:19 09/26/19 23 [place]steroscopy [place] [id number] [facility],[address], [place], [address], [facility] IRONING WORKER 11/23/2023 17:45:37 operative procedure on knee completed Jennifer Felton [facility] IRONING WORKER 09/16/2024 08:17:57 Imaging Results None recorded. Procedure [...] Updated DateTime 09/24/2024 185.42 cm 23.2 kg/m2 14679.82 g 100/62 mm[Hg] Jayla Ronnir [facility] IRONING WORKER 09/24/2024 12:23:07 Social History Question Answer Notes LastModified by Organizat ion Details LastModified Time Tobacco Smoking Status Never Smoker [facility] Bartholomew IRONING WORKER 09/16/2024 08:16:44 What Is Your Level Of [...] SNOMED-CT Code Diagnosis ICD10 Code Diagnosis Note [id number] SVEN EDMONDSON MD [id number] [address] ,[address] [place] James, [place] [address] 08/31/2024 11:40:34 08/31/2024 14:04:02 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 299059702 Z31.81 N97.8 +LH surge on CD#15.Toda y is CD#16 and IUI performedP elijah to return next Friday for progestero ne level [id number] ALISIA DELGADO MD [id number] [address] ,[address] [facility] Jacob, [place] [address] 09/16/2024 08:24:23 09/16/2024 11:59:19 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 414602144 Z31.81 N97.8 [id number] SVEN EDMONDSON MD [id number] [address] ,[address] [facility] [place] [address] 09/16/2024 10:51:54 09/16/2024 11:58:46 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 764110616 Z31.81 N97.8 Normal baseline USPlan letrozole 2.5mg CD#5-9Retu rn CD#12 for (09/23), with possible IUI either 09/24 or Mon tart OPK's CD#10 [id number] KAYODE ZAVALETA [id number] [address] ,[address] [facility] Jacob, [place] [address] 09/23/2024 08:20:28 09/23/2024 11:18:47 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] no recent weight gain or weight loss. GRACIE ALVARADO, [facility] [id number] [facility],[address], [place], [address], [facility] [employer] IRONING WORKER 09/23/2024 11:09:33 09/24/2024 text/html Naga is here today for an IUI. CR LANG, DAVEY- [phone] [facility],[address], [place], [address], [place] [facility] [employer]ON[employer] WORK[employer] 09/24/2024 13:25:20 OBGyn Episode No OBEpisode recorded.
--- OUTSIDE RECORDS SUMMARY | 2024-10-19 10:07 | XMS_ITS | Continuity of Care Document ---
Author Organization [facility] - DRAWING KILN OPERATOR, [id number] Address [address] [facility] [address] [place] [address] Assessment No assessment recorded. Plan of Treatment Reminders Order Date Submit Date Provider Last Modified By Organization Details Last Modified Time Details Appointments G_ARTIFIC IAL INSEMINAT ION 2024 10:30A M Dr. Reina Almodovar Not available Not available Not available Lab None recorded. Referral None recorded. Procedures None recorded. Surgeries None recorded. Imaging US, transvagi nal 2024 025 jjaqua [id number] le_gonzález, [address], [address], [place], [address], 09/17/2024 08:26:17 Medication Orders None recorded. Patient TargetsNo targets recorded. Patient InstructionsNo instructions recorded. Reason for Referral None Reported. Results Created Date Observation Date Name Description Value Unit Range Abnormal Flag Note LastModifiedBy Organization Detail LastModifiedTime 08/21/1908/20/2024 MULTI PLEX VAGIN AL PANEL BY PCR verena group DNA Not Detect ed not detect ed Anastacia da group speci es detec lucia by this jeronimo noyola inclu de C. albjoseph ans, C. carmen berrios , CMichael nick is, CMichael robert is. Not Available [facility] [address] [facility] [address], [place], [address], 08/20/2024 23:21:38 08/21/19 25 08/20/2024 MULTI PLEX [...] repor lucia indiv idual ly. Not Available [facility] [address] [facility] [address], [place], [address], 08/20/2024 23:21:38 08/21/19 25 08/20/2024 MULTI PLEX VAGIN AL PANEL BY PCR verena glabrata/ verena krusei DNA Not Detect ed not detect ed Not Available [facility] [address] [facility] [address], [place], [address], 08/20/2024 23:21:38 08/21/19 25 08/20/2024 MULTI PLEX VAGIN AL PANEL BY PCR trichomonas vaginalis DNA Not Detect ed not detect ed The Xpert ?? Xpres s MVP test, perfo rmed on the Advizzer? ? Instr ument Syste ms, is an [...] the disea se statu s. Not Available [address], [place], [address], 08/20/2024 23:21:38 09/07/19 25 09/06/2024 PROGE STERO [...] Lutea l: 0.5-1 3.5 ng/mL Not Available [address], [place], [address], 09/06/2024 21:06:28 09/17/19 25 09/16/2024 US, trans vagin al No observ ation record ed. [email or web address] Eva [address], [place], [address], 09/21/2024 08:44:22 09/24/19 25 09/23/2024 US, trans vagin al No observ ation record ed. [email or web address] Eva [address], [place], [address], 10/05/2024 08:55:23 10/12/19 25 10/11/2024 US, trans vagin al No observ ation record ed. jjaqua Eva [address], [place], [address], 10/17/2024 13:16:56 10/19/19 25 10/18/2024 US, trans vagin al No observ ation record ed. [email or web address] [address], [place], [address], 10/18/2024 10:19:30 Result Notes None recorded. Problems Name Problem SNOMED Code Status Onset Date Resolution Date Notes Provider Name and Address Organization Details Recorded Time 74176309 Completed 202312/03/2023 Andra garcia null, [place] [facility] DRAWING KILN OPERATOR 4 11:29:27 Blood group O Rh(D) negative 688694660 Completed 2023 Evelyn Meza null, [place] [facility] DRAW[employer] KILN OPERATOR 4 11:28:56 Blood group O Rh(D) negative 930436343 Active 2023 Evelyn Meza null, [place] [facility] DRAWING KILN OPERATOR 4 11:28:56 Problem Notes None recorded. Procedures Surgical History Date Name Laterality Status Provider Name and Address Organization Details Recorded Time 09/25/19 25 Intrauterine Insemination ([facility]) completed BETSY HARDEN [address] [facility],[address], [place], [address], [facility] [employer] DRAWING KILN OPERATOR 09/24/2024 13:23:18 09/01/19 25 Intrauterine Insemination ([facility]) [place] [address] [facility],[address], [place], [address], [facility] [employer] DRAWING KILN OPERATOR 08/31/2024 13:59:14 02/17/20 24 Date of Last Pap Smear completed Gabe Tilley [facility] DRAWING KILN OPERATOR 02/23/2024 14:37:49 12/11/19 24 HYSTEROSCOPIC TISSUE REMOVAL (SURG) completed Andra Venegas [facility] DRAWING KILN OPERATOR 12/16/2023 13:57:19 09/26/19 23 [place]steroscopy [place] [address] [facility],[address], [place], [address], [facility] DRAWING KILN OPERATOR 11/23/2023 17:45:37 operative procedure on knee completed Jennifer Felton [facility] DRAWING KILN OPERATOR 09/16/2024 08:17:57 Imaging Results None recorded. Procedure [...] Available Not Available No t Available Dasetta 35 (28) 1 mg-35 mcg tablet Take 1 tablet by mouth daily. Skip placebo tablets. 10/29 completed Not Available Not Available Not Available Vitals None Recorded Social History Question Answer Notes LastModified by Organizat ion Details LastModified Time Tobacco Smoking Status Never Smoker SILVIO Bartholomew - DRAWING KILN OPERATOR 09/16/2024 08:16:44 What Is Your Level Of Caffeine Consumption? 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 924272262 Z31.81 N97.8 +LH surge on CD#15.Toda y is CD#16 and [facility] to return next Friday for progestero ne level [id number] ALISIA DELGADO MD [id number] [facility] [address] [facility] ,[address] [place] James, [place] [address] 09/16/2024 08:24:23 09/16/2024 11:59:19 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 689724240 Z31.81 N97.8 [id number] SVEN EDMONDSON MD [id number] [facility] [address] [facility] ,[address] [place] [address] 09/16/2024 10:51:54 09/16/2024 11:58:46 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
--- OUTSIDE RECORDS SUMMARY | 2024-10-19 10:08 | XMS_ITS ---
Author Name Interface, S9Mlsrytk lity Address [address] [facility] [address] [place] [address] [facility] Address [address] [facility] [address] [place] [address] Allergies and Adverse Reactions Medication/Group Name Reaction Severity Date No known allergies Plan Date Type Value 10/22/2024 APPOINTMENT HIGH [...] Date End Date Status Cholecalciferol Oral active Vitamin E Oral ac tive Levothyroxine Oral QD active Sertraline Oral QD a ctive EPA/DHA essentials Oral active Coenzyme Q10 Oral active Choriogonadotropin aida Subcutaneous ac tive Miscellaneous Drug Ovasitol active Miscellaneous Drug P erelel Conception support active Problems Diagnosis Status Date of Diagnosis Resolution Date Breast pain Active Vital Signs Date Type Value 10/11/2024 Heart Beat 52.00 10/11/2024 Respiratory Rate 16.00 10/11/2024 Oxygen Saturation 98.00 10/11/2024 Intravascular Systolic 105 10/11/2024 Intravascular Diastolic 68 10/11/2024 BSA 2.04 10/11/2024 Weight 175.80 10/11/2024 Height 73.00 10/11/2024 BMI 23.19 10/11/2024 Pain Scale 0.00 Notes Section * Surg Benign Consult Patient Name:??MARIA M SHIRA Date of :??1995 Date of Service:??10/11/2024 Attending Physician:?Farshad Gasca (Medical Oncology) INITIAL BREAST SURGICAL CONSULTATION Reason for Consult: Breast pain? History of Present Illness: 29-year-old female patient presenting with left??breast pain. She describes the pain as more of a soreness that is very intermittent and happens in the left upper outer breast. ??She does not correlated with her cycles or any other??times of the month. ??She??has slightly increased working out but no significant change in??her routine.?? This did start aroundthe time that her IUI??treatments are started. At that time, patient denied pain in the breast, nipple discharge, skin changes or other concerninglumps or bumps. Patient denies trauma to the area. Patient was referred to my clinic?? by Uzma GÓMEZ Breast Cancer Risk Assessment: , 1 miscarriage Age at first :??N/A Menarche at age unknown Menopause at age premenopausal OCP:??Greater??years HRT:??No?? 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 Negative for weight loss, weight gain, fever, chills, fatigue. Respiratory:?? Negative for cough, shortness of breath, dyspnea. Cardiovascular:?? Negative for?? chest pain, palpitations, syncope. Gastrointestinal:?? Negative for nausea, vomiting, changes in bowel habits, abdominal pain, jaundice. Integument/Breast:?? Negative for other skin changes aside from those noted in the HPI related to??the breast. Hematologic/lymphatic:?? Negative for easy bruising, bleeding, history of bleeding disorders, lymphadenopathy. Psychiatric:?? Negative for depression or sleep disturbances Endocrine:?? Negative for?? heat or cold intolerances Gynecologic:?? Negative for vaginal dryness, vaginal spotting,?? vaginal discharge. Physical Exam Vitals: Blood pressure: [...] skin changes, no nipple discharge, no nipple retraction,??she does have??a dense area of glandular tissue in the upper outer aspect of her breast??which is the same on the left LEFT BREAST: no well defined masses or lesions, no skin changes, no nipple discharge, no nipple retraction??she does have a dense area of glandular tissue in the upper outer aspect of her breast which is the same on the right, this area corresponds to her area of tenderness??however there are no discrete palpable lesions within this area??or overlying skin changes.?? LYMPH: no axillary, supraclavicular, infraclavicular, or cervical lymphadenopathy bilaterally ABDOMEN: soft, non-tender, non-distended, no masses BACK: no spinal tenderness EXTREMITIES: warm, well perfused, normal range of motion upper extremities, normal gait Imaging Reviewed as per HPI Pathology Reviewed as per HPI Assessment: 29-year-old female patient with left breast pain. Plan: After performing a clinical exam and reviewing??Kenzie's history,??I recommend that we proceed with conservative management of her breast pain including massage, supportive bra,??hot/cold compresses to the area,??additionally continuing to monitor the pain??as she goes through IUI.?? I believe that this is??linked to hormonal changes??with this treatment as able started around the same time??and the pain is intermittent. ??I did discuss with??her that she??should continue self breast awareness??and make us aware of any changes to her skin, nipple, breast contour,??breast size,??palpable??nayeli mps.?? I would like to evaluate her again in 2 months??after??attempting??these more conservative measures.?? If the pain progresses or if she notices any changes, I do recommend that she call??for further evaluation and possible imaging. 30 minutes spent on day of encounter in review of records, exam, discussion, counseling, coordination of care, orders, and documentation.?? Thank you for allowing me to see MARIA M SILVA in consult. Joy Hay DO CC: FAX Karina Joshi NP (Referring) Electronically signed by Joy Hay DO 10/11/2024 10:07 CDT
--- OUTSIDE RECORDS SUMMARY | 2024-10-19 10:08 | XMS_ITS | Clinical Summary ---
Author Organization [employer] [facility] Address [address] [place] [address] Care Team Providers Care Extension Course Counselor Name Role Phone Pcp, No Primary Care Provider Unavailabl e Medications No known medications Social History Tobacco Use Types Packs/Day Years Used Date Smoking Tobacco: Never Smokeless Tobacco: Never Tobacco Cessation:Counseling Given: Not Answered Alcohol Use Standard Drinks/Week Comments Not Currently 0 (1 standard drink = 0.6 oz pur e alcohol) Comments Unknown Sex and Gender Information Value Date Recorded Sex Assigned at Not on file Legal 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 Gender Identity Not on file Sexual Orientation Not on file Obstetrics History Last Filed Vital Signs Vital Sign Reading Time Taken Comments Blood Pressure 98/62 06/17/2024 8:32 AM CDT Pulse 65 06/17/2024 8:32 AM CDT Temperature - - Respiratory Rate - - Oxygen Saturation 99% 06/17/2024 8:32 AM CDT Inhaled Oxygen Concentration - - Weight 79.9 kg (176 lb 3.2 oz) 06/17/2024 8:32 A M CDT Height 185.4 cm (6' 1) 06/17/2024 8:32 AM CDT Body Mass Index 23.25 06/17/2024 8:32 AM CDT Plan of Treatment Health Maintenance Due Date Last Done Comments Tetanus booster 2004 Depression screening for age 12+ 2005 HIV for age 15-65 2008 Hepatitis B series for 19+ ( 1 of 3 - 19+ 3-dose series) 2012 Pap test for age 21-65 2014 COVID-19 vaccine series (2023- season) 2023 Influenza Vaccine (#1) 2024 BMI (ht and wt on same day) for age 18+ 06/17/2025 06/17/2024 Hepatitis C screening for ag e 18-79 Completed 06/17/2024 Pneumococcal series for age 6-49 Aged Out No longer eligible based on patient's age to complete this topic Procedures Procedure Name Priority Date/Time Associated Diagnosis Comments ANTI HCV Routine 06/17/2024 9:27 AM CDT Primary iridocyclitis, right eye from Last 3 Months or Most Recently Relevant to Health Maintenance Results * ANTI HCV (06/17/2024 9:27 AM CDT) HEPATITIS C ANTIBODY NON-REACTI VE NON-REACT SETH [facility] natalie Lora Comment: HCV antibody was non-reactive. There is no laboratory evidence of HCV infection. In most cases, no further action is required. However, if recent HCV exposure is suspected, a test for HCV RNA (test code 56723) is suggested. For additional information please refer to http://education.Therm[employer] Control/faq/VNT32y9 (This link is being provided for informational/ educational purposes only.) Blood BLOOD SPECIMEN / Unknown 06/17/2024 9:27 AM CDT 06/17/2024 9:28 AM CDT Duy Greenfield MD SEND OUTS Fin al Result Log[employer] Apps [facility] [address] [place] [address], [facility] [address] [place] [address] from Last 3 Months or Most Recently Relevant to Health Maintenance Insurance [facility] Care Teams Extension Course Counselor Relationship Specialty Start Date End Date Pcp, No . PCP - General 06/17/24
--- OUTSIDE RECORDS SUMMARY | 2024-10-19 10:08 | XMS_ITS | Continuity of Care Document ---
Author Organization [facility], [id number] Address [address] [place] [address] Assessment No assessment recorded. Plan of Treatment Reminders Order Date Submit Date Provider Last Modified By Organization Details Last Modified Time Details Appointments G_ARTIFIC IAL INSEMINAT ION 2024 10:30A M Dr. Reina Almodovar Not available Not available Not available Lab None recorded. Referral None recorded. Procedures None recorded. Surgeries None recorded. Imaging US, transvagi nal 2024 025 jjaqua Sj001_anglvgh ivanna_gonzález, [address], [address], [place], [address], 10/11/2024 13:23:47 Medication Orders None recorded. Patient TargetsNo targets recorded. Patient InstructionsNo instructions recorded. Reason for Referral None Reported. Results Created Date Observation Date Name Description Value Unit Range Abnormal Flag Note LastModifiedBy Organization Detail LastModifiedTime 09/17/1909/16/2024 US, trans vagin al No observ ation record ed. [email or web address] Eva [address], [place], [address], 09/21/2024 08:44:22 09/24/1909/23/2024 US, trans vagin al No observ ation record ed. [email or web address] [address], [place], [address], 10/05/2024 08:55:23 10/12/1910/11/2024 US, trans vagin al No observ ation record ed. anuj Velasquez [address], [place], [address], 10/17/2024 13:16:56 10/19/19 25 10/18/2024 US, trans vagin al No observ ation record ed. korey Velasquez [address], [place], [address], 10/18/2024 10:19:30 Result Notes None recorded. Problems Name Problem SNOMED Code Status Onset Date Resolution Date Notes Provider Name and Address Organization Details Recorded Time 00978964 Completed 202312/03/2023 Andra garcia null, [place] - [facility] 4 11:29:27 Blood group O Rh(D) negative 824874061 Completed 2023 Evelyn Meza null, [place] - [facility] 4 11:28:56 Blood group O Rh(D) negative 612441521 Active 2023 Evelyn Meza null, [place] - [facility] 4 11:28:56 Problem Notes None recorded. Procedures Surgical History Date Name Laterality Status Provider Name and Address Organization Details Recorded Time 09/25/19 Intrauterine Insemination ([facility]) completed KAYODE HARDEN-FERNANDO [address] [facility],[address], [place], [address], [place] - [facility] 09/24/2024 13:23:18 09/01/19 25 Intrauterine Insemination ([facility]) [place] [address] [facility],[address], [place], [address], [place] [facility] 08/31/2024 13:59:14 02/17/20 24 Date of Last Pap Smear completed Gabe Tilley [place] - [facility] 02/23/2024 14:37:49 12/11/19 24 HYSTEROSCOPIC TISSUE REMOVAL (SURG) completed Andra Venegas [place] - [facility] 12/16/2023 13:57:19 09/26/19 [place]steroscopy [place] [address] [facility],[address], [place], [address], [place] [facility] 11/23/2023 17:45:37 operative procedure on knee completed Jennifer Felton [facility] 09/16/2024 08:17:57 Imaging Results None recorded. 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 [id number] Z31.81 N97.8 [id number] SVEN EDMONDSON MD [address] ,[address] [facility] [place] [address] 09/16/2024 10:51:54 09/16/2024 11:58:46 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 [id number] Z31.81 N97.8 Normal baseline USPlan letrozole 2.5mg CD#5-9Retu rn CD#12 for US (09/23), with possible IUI either Fri 09/24 or Mon tart OPK's CD#10 [id number] KAYODE ZAVALETA [address] ,[address] [place] [id number] 09/23/2024 08:20:28 09/23/2024 11:18:47 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 [id number] Z31.81 N97.8 [id number] CR LANG ARLEY [id number] THDALE_ED OFE [address] [address] 10/11/2024 08:53:54 10/11/2024 12:46:44 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 [id number] Z31.81 N97.8 Female infertility 91689 08 N97.9 Cyst of right ovary 1223 [id number] [id number] N83.201 -3.5 cm, unchanged from last cycle-elisha tor for any right sided pain [id number] KARLO RODRIGUEZ, [id number] [address] ,[address] [place] [address] 10/11/2024 08:26:05 10/11/2024 08:53:23 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 [id number] Z31.81 N97.8 Health Concerns Section Related Observation LastModified by Organization Detai ls LastModified Time None Recorded Concern Status LastModified by Organization Details LastModified Time None Recorded Payers Encounter Date Sequence Insurance Name Policy Number Policy Reis Covered Member ID Reis Member ID Guarantor Name 10/11/2024 1 [place] [id number] Naga Murrieta [id number] Naga Murrieta Notes Date Note Type Note Provider Name and Address Organization Details Recorded Time 10/11/2024 text/html Cycle #: 3Cycle Day: 5Cycle [...] plan same dose, trigger shot + IUI KAYODE HARDEN- [address] [facility],[address], [place], [address], [place] [facility] [employer] [facility] 10/11/2024 12:15:06 OBGyn Episode No OBEpisode recorded.
[2024-10-19 10:13] LABS: Lymphocytes Absolute Auto 1.00 K/uL (0.90-2.90); Slide Review Reflex No
[2024-10-19 10:25] LABS: Chloride* 107 mmol/L (96-114); Sodium* 137 mmol/L (135-149)
[2024-10-19 10:26] LABS: Potassium* 4.5 mmol/L (3.6-5.1)
[2024-10-19 10:27] LABS: D Dimer Quantitative* < 0.27 ug/ml (0.00-0.50)
[2024-10-19 10:28] LABS: Blood Urea Nitrogen* 14 mg/dL (5-24); Creatinine* 0.9 mg/dL (0.5-1.5); Est. Creatinine Clearance* 107.81; Estimated Glomerular Filt Rate 88 ml/min
[2024-10-19 10:29] LABS: Anion Gap 3 mEq/L (7-15); Calcium* 9.0 mg/dL (8.4-10.6); Carbon Dioxide* 27 mmol/L (20-32); Glucose* 90 mg/dL (60-115)
== END 2024-10-19 11:06 | disposition home or self-care (01) ==
PROVIDERS: Emergency Provider Family Medicine
DX: R55 Syncope and collapse (principal)
CPT/HCPCS: 36415; 80048; 83605; 84484; 85025; 85379; 93005; 94761; 99284